=== PATIENT | male | born 1965 ===

== ENCOUNTER 2016-12-10 09:51 | Inpatient (IN) | payer MEDICARE, MEDICAID ==
[2016-12-10 10:00] VITALS: BMI 25.9
[2016-12-10] MEDS ORDERED: Sodium Chloride 0.9% 500 ML IV STA (10:37)
--- NOTE | 2016-12-10 10:40 | ED PDOC ---
HPI: General Adult Time Seen by Provider: 12/10/16 10:26 Chief Complaint (Nursing): Psychiatric Evaluation Chief Complaint (Provider): Anxiety History Per: Patient, Family History/Exam Limitations: no limitations Onset/Duration Of Symptoms: Days (5) Have you had recent travel within the past 21 days to any of the following countries: [place], [place], [place] or [place]?: No Current Symptoms Are (Timing): Still Present Additional Complaint(s): Pt. has not been sleeping and feeling anxious. Talking a lot and screaming at nights. No suicidal or homicidal ideation. Eating and drinking with no issues. No changes in his walking. No drugs or etoh. Taking his meds. Urinating well. No abd pain. No chest pain, dyspnea, headaches, dizziness, cough. Past Medical History Reviewed: Nursing Documentation, Vital Signs Vital Signs: Last Vital Signs Temp 99 F 12/10/16 09:59 Pulse 86 12/10/16 09:59 Resp BP 153/101 H 12/10/16 09:59 Pulse Ox 98 12/10/16 12:10 - Medical History PMH: Anxiety, Asthma, Bipolar Disorder, Bronchitis, COPD, HTN, Hypercholesterolemia, Chronic Kidney Disease, Schizophrenia Denies: HIV Other PMH: hyponatremia hx - Surgical History Surgical History: Denies: CABG - Family History Family History: States: Unknown Family Hx - Living Arrangements Living Arrangements: With Family - Social History Current smoker - smoking cessation education provided: No Alcohol: None Drugs: Denies - Allergies Allergies/Adverse Reactions: Allergies Allergy/AdvReac Type Severity Reaction Status Date / Time pear Allergy RASH Verified 12/10/16 10:05 Review of Systems ROS Statement: Except As Marked, All Systems Reviewed And Found Negative Psych: Positive for: Anxiety Physical Exam - Reviewed Nursing Documentation Reviewed: Yes Vital Signs Reviewed: Yes - Physical Exam Appears: Positive for: Non-toxic, No Acute Distress Head Exam: Positive for: ATRAUMATIC, NORMAL INSPECTION, NORMOCEPHALIC Skin: Positive for: Normal Color, Warm, DRY Eye Exam: Positive for: EOMI, Normal appearance, PERRL ENT: Positive for: Normal ENT Inspection Neck: Positive for: Normal, Painless ROM Cardiovascular/Chest: Positive for: Regular Rate, Rhythm Respiratory: Positive for: CNT, Normal Breath Sounds Gastrointestinal/Abdominal: Positive for: Normal Exam, Bowel Sounds, Soft. Negative for: Tenderness Back: Positive for: Normal Inspection. Negative for: L CVA Tenderness, R CVA Tenderness Extremity: Positive for: Normal ROM. Negative for: Tenderness, Pedal Edema Neurologic/Psych: Positive for: Alert, sand screener II-XII, Oriented. Negative for: Motor/Sensory Deficits, Aphasia, Facial Droop - Laboratory Results Result Diagrams: 12/10/16 11:12 12/10/16 11:12 Interpretation Of Abn Labs: cl 92, na 130 Urine dip results: Negative for: Leukocyte Esterase, Nitrate - ECG ECG: Positive for: Interpreted By Me, Viewed By Me ECG Rhythm: Positive for: Normal QRS, Normal ST Segment, Sinus Rhythm O2 Sat by Pulse Oximetry: 98 Pulse Ox Interpretation: Normal - CT Scan/US head Other Rad Studies (CT/US): Read By Radiologist Other Rad Interpretation: no acute - Progress ED Course And Treament: 1209: Stable. Na and Cl likely improved with fluids given in ER. 1325: Stable. Crisis saw pt. Will admit. Is medically stable for eval. Disposition - Clinical Impression Clinical Impression: Schizophrenia, Bipolar disorder - Patient ED Disposition Is Patient to be Admitted: Yes Counseled Patient/Family Regarding: Studies Performed, Diagnosis - Disposition Disposition Time: 13:25 Condition: FAIR - Pt Status Changed To: Hospital Disposition Of: Inpatient - Admit Certification Admit to Inpatient:: After my assessment, the patient will require hospitalization for at least two midnights. This is because of the severity of symptoms shown, intensity of services needed, and/or the medical risk in this patient being treated as an outpatient. - POA Present On Arrival: None
[2016-12-10 11:20] LABS: BASO % 0.4 % (0.0-2.0); EOS # 0.1 K/uL (0.0-0.7); EOS % 1.3 % (0.0-4.0); HEMATOCRIT 37.4 % (35.0-51.0); LYMPH # 1.4 K/uL (1.0-4.3); LYMPH % 23.4 % (20.0-40.0); MEAN CELL VOLUME 90.9 fl (80.0-94.0); MEAN CORPUSCULAR HEMOGLOBIN 29.9 pg (27.0-31.0); MEAN CORPUSCULAR HGB CONC 32.9 g/dL (33.0-37.0); MEAN PLATELET VOLUME 7.4 fl (7.2-11.7); MONO # 0.5 K/uL (0.0-0.8); MONO % 8.2 % (0.0-10.0); NEUT # 3.9 K/uL (1.8-7.0); NEUT % 66.7 % (50.0-75.0); RED CELL DISTRIBUTION WIDTH 13.6 % (11.5-14.5); WHITE BLOOD COUNT 5.9 K/uL (4.8-10.8)
[2016-12-10 11:29] LABS: ALCOHOL SERUM < 10 mg/dl (0-10); ALKALINE PHOSPHATASE 66 U/L (38-126); ALT/SGPT 18 U/L (21-72); AST/SGOT 34 U/L (17-59); BILIRUBIN,TOTAL 0.4 mg/dl (0.2-1.3); BLOOD UREA NITROGEN 24 mg/dl (9-20); CALCIUM 9.3 mg/dL (8.4-10.2); CARBON DIOXIDE 28 mmol/L (22-30); CHLORIDE 92 mmol/L (98-107); GFR AFRICAN-AMERICAN > 60; GLUCOSE,RANDOM 89 mg/dL (75-110); SODIUM 130 mmol/l (132-148)
--- NOTE | 2016-12-10 11:52 | CT ---
PROCEDURE: CT HEAD WITHOUT CONTRAST. HISTORY: headache COMPARISON: None available. TECHNIQUE: Axial computed tomography images were obtained through the head/brain without intravenous contrast. Radiation dose: Total exam DLP = 871.04 mGy-cm. This CT exam was performed using one or more of the following dose reduction techniques: Automated exposure control, adjustment of the mA and/or kV according to patient size, and/or use of iterative reconstruction technique. FINDINGS: HEMORRHAGE: No intracranial hemorrhage. BRAIN: No mass effect or edema. Mild diffuse atrophy. Mild periventricular white matter lucency consistent with chronic microvascular ischemic change. No evidence of acute infarct. VENTRICLES: Mild ventricular dilatation likely representing central greater than peripheral cerebral atrophy. CALVARIUM: Unremarkable. PARANASAL SINUSES: Sphenoid retention cyst/polyp. Otherwise unremarkable. MASTOID AIR CELLS: Unremarkable as visualized. No inflammatory changes. OTHER FINDINGS: None. IMPRESSION: No intracranial mass, hemorrhage or evidence of acute infarct. Mild atrophy, slightly greater than expected for patient age. Chronic white matter ischemic change. Left sphenoid retention cyst/ polyp.
[2016-12-10 12:06] LABS: PARTIAL THROMBOPLASTIN TIME 27.8 SECONDS (23.3-32.5)
[2016-12-10] MEDS ORDERED: DiphenhydrAMINE 50 mg/ml Inj IM PRN (18:19)
[2016-12-10] MEDS ORDERED: Magnesium Hydroxide Susp 30 ml UD PO PRN (18:26)
[2016-12-10] MEDS: Divalproex 500 mg DR(BID formulation) PO SCH (21:13)
[2016-12-11 08:39] LABS: T4 8.89 ug/dl (5.5-11.0)
[2016-12-11 08:53] LABS: THYROID STIMULATING HORMONE 3.56 mIU/ML (0.46-4.68)
[2016-12-11] MEDS ORDERED: Divalproex 500 mg DR(BID formulation) PO SCH (09:00)
[2016-12-11] MEDS ORDERED: Risperidone M tab 1 MG PO SCH (09:00)
--- NOTE | 2016-12-11 09:07 | CARD ---
APPROVED REPORT EKG Measurement Heart [id number] <Conclusion> Normal sinus rhythm Normal ECG
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
[2016-12-11] MEDS: Risperidone M tab 1 MG PO SCH (17:10)
[2016-12-11 17:16] VITALS: O2SAT 99
--- NOTE | 2016-12-11 19:48 | CP.PCM.CON ---
History of Present Illness - History of Present Illness History of Present Illness: 51 yrs old ,male AD CC anxious, agitated , paranoid , not sleeping Psych Hx Bipolar disorder , Schizophrenia. PMHx COPD Bronchial Asthma , Allergic Rhinitis , HTN , High Cholesterol , CKD , Hydronephrosis , PCK , TURP , GERD , Hyponatremia Review of Systems - Review of Systems Systems not reviewed;Unavailable: Altered Mental Status - Psychiatric Psychiatric: Anxiety, Irritability Past Patient History - Past Medical History & Family History Past Medical History?: Yes - Past Social History Smoking Status: Never Smoked Alcohol: None Drugs: Denies Home Situation {Lives}: With Family - CARDIAC Hx Hypertension: Yes (10 yrs) - PULMONARY Hx Asthma: Yes Hx Tuberculosis: No - NEUROLOGICAL HX Cerebrovascular Accident: No Hx Seizures: No - HEENT Hx HEENT Problems: No - RENAL Hx Chronic Kidney Disease: Yes - ENDOCRINE/METABOLIC Hx Endocrine Disorders: No - HEMATOLOGICAL/ONCOLOGICAL Hx Blood Disorders: No Hx Cancer: No Hx Human Immunodeficiency Virus (HIV): No - INTEGUMENTARY Hx Dermatological Problems: No - MUSCULOSKELETAL/RHEUMATOLOGICAL Hx Musculoskeletal Disorders: Yes Hx Falls: Yes - GASTROINTESTINAL Hx Gastrointestinal Disorders: Yes Hx Gastroesophageal Reflux: Yes - GENITOURINARY/GYNECOLOGICAL Hx Genitourinary Disorders: Yes Hx Sexually Transmitted Disorders: No Other/Comment: prostate surgery 5 yrs ago - PSYCHIATRIC Hx Anxiety: Yes Hx Bipolar Disorder: Yes Hx Psychosis: Yes Hx Schizophrenia: Yes Hx Substance Use: No - SURGICAL HISTORY Hx Surgeries: Yes Hx Coronary Artery Bypass Graft: No Other/Comment: prostate surgery 5 yrs ago - ANESTHESIA Hx Anesthesia: Yes Hx Anesthesia Reactions: No Meds Allergies/Adverse Reactions: Allergies Allergy/AdvReac Type Severity Reaction Status Date / Time pear Allergy RASH Verified 12/10/16 10:05 - Medications Medications: Current Medications Acetaminophen (Tylenol 325mg Tab) 650 mg PO Q4 PRN PRN Reason: pain 3 thru 8 Al Hydrox/Mg Hydrox/Simethicone (Maalox Plus 30 Ml) 30 ml PO Q6 PRN PRN Reason: Indigestion / Heartburn Benztropine Mesylate (Cogentin) 1 mg PO HS YEN Last Admin: 12/10/16 21:13 Dose: 1 mg Clonazepam (Klonopin) 1 mg PO BID YEN Last Admin: 12/11/16 17:11 Dose: 1 mg Diphenhydramine HCl (Benadryl) 50 mg PO Q6 PRN PRN Reason: eps Last Admin: 12/11/16 05:46 Dose: 50 mg Diphenhydramine HCl (Benadryl) 50 mg IM Q6 PRN PRN Reason: severe eps if can not swallow Divalproex Sodium (Depakote Dr(*Bid*)) 1,000 mg PO HS [facility] Last Admin: 12/10/16 21:13 Dose: 1,000 mg Fluticasone Propionate (Flonase) 2 spr ARNOLDO DAILY [facility] Haloperidol (Haldol) 5 mg PO Q4 PRN PRN Reason: Agitation Last Admin: 12/11/16 05:46 Dose: 5 mg Haloperidol Lactate (Haldol) 5 mg IM Q4 PRN PRN Reason: severe agitation Hydrochlorothiazide (Microzide) 12.5 mg PO DAILY [facility] Lorazepam (Ativan) 2 mg PO Q4 PRN PRN Reason: Agitation Last Admin: 12/10/16 20:41 Dose: 2 mg Lorazepam (Ativan) 2 mg IM Q6 PRN PRN Reason: severe agitation Magnesium Hydroxide (Milk Of Magnesia) 30 ml PO HS PRN PRN Reason: Constipation Pantoprazole Sodium (Protonix Ec Tab) 40 mg PO DAILY [facility] Risperidone (Risperdal M-Tab) 3 mg PO BID [facility] Last Admin: 12/11/16 17:10 Dose: 3 mg Valsartan (Diovan) 160 mg PO DAILY [facility] Physical Exam - Constitutional Appears: Agitated - Head Exam Head Exam: NORMAL INSPECTION - Eye Exam Pupil Exam: PERRL - ENT Exam ENT Exam: Normal Oropharynx - Neck Exam Neck exam: Positive for: Normal Inspection - Respiratory Exam Respiratory Exam: Decreased Breath Sounds (at bases) - Cardiovascular Exam Cardiovascular Exam: REGULAR RHYTHM - GI/Abdominal Exam GI & Abdominal Exam: Normal Bowel Sounds, Soft - Extremities Exam Extremities exam: Positive for: normal inspection - Back Exam Back exam: NORMAL INSPECTION - Neurological Exam Neurological exam: Altered Additional comments: no focal motor/sensory deficit - Psychiatric Exam Psychiatric exam: Agitated, Anxious - Skin Skin Exam: Warm Results - Vital Signs Recent Vital Signs: Last Vital Signs Temp 98.2 F 12/11/16 17:00 Pulse 99 H 12/11/16 17:00 Resp 18 12/11/16 17:00 BP 134/84 12/11/16 17:00 Pulse Ox 99 12/11/16 17:00 - Labs Result Diagrams: 12/17/16 05:30 12/18/16 08:00 Labs: Laboratory Results - last 24 hr 12/11/16 06:30 Thyroxine (T4) 8.89 Total T3 1.18 L TSH 3rd Generation 3.56 RPR Nonreactive Assessment & Plan - Assessment and Plan (Free Text) Assessment: COPD Bronchial Asthma , HTN , High Cholesterol , GERD, CKD , Hydronephrosis , Hyponatremia. Plan: Continue Diovan , Maalox , Protonix, f/u Na - Date & Time Date: 12/11/16 Time: 13:30
[2016-12-11] MEDS: Divalproex 500 mg DR(BID formulation) PO SCH (21:11)
[2016-12-12] MEDS: Pantoprazole 40 mg EC Tab PO SCH (08:16)
[2016-12-12] MEDS: Risperidone M tab 1 MG PO SCH ×3 (08:17→17:47)
--- NOTE | 2016-12-12 13:45 | PCM.PYCHPN ---
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 he is yelling in hallway and with rambling speech in treatment team. he is taking medications as prescribed. he has given consent for serqoeu. pt observed to have tremors. Medication Change: Yes (add seroquel) Medical Record Reviewed: Yes Mental Status Examination - Cognitive Function Orientation: Person, Place, Situation, Time Memory: Intact Attention: WNL Concentration: WNL Association: [facility] Fund of Knowledge: [facility] Decription of patient's judgement and insights: variable - Mood Mood: Other (anxious/depressed/dysphoric) - Affect Affect: Other (labile) - Speech Speech: Loud - Formal Thought Process Formal Thought Process: Delusions, Paranoia, Loosening of associations - Suicidal Ideation Suicidal Ideation: No - Homicidal Ideation Homicidal Ideation: No Goal/Treatment Plan - Goal/Treatment Plan Need for Continued Stay: Remain at risks for inpatient hospitalization, Discharge may exacerbated symptoms Progress Toward Problem(s) and Goals/Treatment Plan: schizoaffective disorder bipolar type continue current treatment will add seroquel to address mood/psychosis. t/c increase in depakote disposition planning Estimated Date of D/C: 12/19/16
[2016-12-12] MEDS: Divalproex 500 mg DR(BID formulation) PO SCH (21:32)
[2016-12-13] MEDS: Pantoprazole 40 mg EC Tab PO SCH (09:12)
[2016-12-13] MEDS: Risperidone M tab 1 MG PO SCH ×2 (09:12→17:01)
--- NOTE | 2016-12-13 10:54 | PCM.PYCHPN ---
Psychiatric Progress Note - Psychiatric Progress Note Patient seen today, length of contact: discussed with team Patient Chief Complaint: how do you see me? Problems Identified/Issues Discussed: pt loud, intrusive, episodes of yelling in day area. laughing to self, talking rapidly. demanding to talk to his mother. he is willing to allow an increase in his medication. he is asking about discharge. he denies medication side effects. Medication Change: Yes (increase seroquel) Medical Record Reviewed: Yes Mental Status Examination - Cognitive Function Orientation: Person, Place, Situation, Time Memory: Intact Attention: WNL Concentration: WNL Association: [facility] Fund of Knowledge: [facility] Decription of patient's judgement and insights: variable - Mood Mood: Other (labile) - Affect Affect: Other (labile) - Speech Speech: Loud - Formal Thought Process Formal Thought Process: Delusions, Paranoia, Loosening of associations Psychotic Thoughts and Behaviors: pt is internally preoccupied, loud, intrusive, labile. - Suicidal Ideation Suicidal Ideation: No - Homicidal Ideation Homicidal Ideation: No Goal/Treatment Plan - Goal/Treatment Plan Need for Continued Stay: Remain at risks for inpatient hospitalization, Discharge may exacerbated symptoms Progress Toward Problem(s) and Goals/Treatment Plan: schizoaffective disorder bipolar type continue current treatment will increased seroquel to address mood/psychosis. t/c increase in depakote- will check level tomorrow disposition planning Estimated Date of D/C: 12/19/16 - Smoking Cessation Smoking Cessation Initiated: No
[2016-12-13] MEDS: Divalproex 500 mg DR(BID formulation) PO SCH (21:04)
[2016-12-14] MEDS: Pantoprazole 40 mg EC Tab PO SCH (08:36)
[2016-12-14] MEDS: Risperidone M tab 1 MG PO SCH ×2 (08:36→16:51)
--- NOTE | 2016-12-14 10:51 | PCM.PYCHPN ---
Psychiatric Progress Note - Psychiatric Progress Note Patient seen today, length of contact: Patient evaluated, chart reviewed, case discussed with team Patient Chief Complaint: "I need a aix system administrator." Problems Identified/Issues Discussed: Patient continue to be disorganized and psychotic. He is requesting a aix system administrator to confess his sins. He denies AH/VH/SI/HI/paranoia, but seems to be internally preoccupied and is non-linear on conversation. 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 Medication Change: Yes (Increase Seroquel to 50 mg PO BID/ 100 mg PO HS) Medical Record Reviewed: Yes Mental Status Examination - Cognitive Function Orientation: Person, Place, Situation, Time Memory: Intact Attention: WNL Concentration: WNL Association: [facility]NL Fund of Knowledge: [facility] Decription of patient's judgement and insights: Poor insight/judgment - Mood Mood: Anxious - Affect Affect: Other (Labile) - Speech Speech: Loud - Formal Thought Process Formal Thought Process: Delusions, Paranoia, Loosening of associations Psychotic Thoughts and Behaviors: Denies delusions, but patient seems to be paranoid, with fluctuating delusions and internally preoccupied - Suicidal Ideation Suicidal Ideation: No - Homicidal Ideation Homicidal Ideation: No Goal/Treatment Plan - Goal/Treatment Plan Need for Continued Stay: Remain at risks for inpatient hospitalization, Discharge may exacerbated symptoms Progress Toward Problem(s) and Goals/Treatment Plan: 51 yo male with Schizoaffective disorder continues to be labile and acutely psychotic. -Increase Seroquel to 50 mg PO BID/ 100 mg PO HS -Continue other medications -Individual, group and milieu tx Estimated Date of D/C: 12/19/16
--- NOTE | 2016-12-14 14:14 | CP.PCM.PN ---
Subjective - Date & Time of Evaluation Date of Evaluation: 12/14/16 Time of Evaluation: 11:00 - Subjective Subjective: F/U COPD bronchial Asthma/HTN. Occasional SOB , no SOB now , no CASTAÑEDA , no cough Objective - Vital Signs/Intake and Output Vital Signs (last 24 hours): Temp Pulse Resp BP Pulse Ox 96.4 F L 78 18 129/94 H 99 12/14/16 09:12 12/14/16 09:12 12/14/16 09:12 12/14/16 09:12 12/11/16 17:00 - Medications Medications: Current Medications Acetaminophen (Tylenol 325mg Tab) 650 mg PO Q4 PRN PRN Reason: pain 3 thru 8 Al Hydrox/Mg Hydrox/Simethicone (Maalox Plus 30 Ml) 30 ml PO Q6 PRN PRN Reason: Indigestion / Heartburn Benztropine Mesylate (Cogentin) 1 mg PO [facility] Last Admin: 12/13/16 21:05 Dose: 1 mg Benztropine Mesylate (Cogentin) 1 mg PO DAILY [facility] Last Admin: 12/14/16 08:38 Dose: 1 mg Clonazepam (Klonopin) 1 mg PO BID [facility] Last Admin: 12/14/16 08:42 Dose: 1 mg Diphenhydramine HCl (Benadryl) 50 mg PO Q6 PRN PRN Reason: eps Last Admin: 12/12/16 03:23 Dose: 50 mg Diphenhydramine HCl (Benadryl) 50 mg IM Q6 PRN PRN Reason: severe eps if can not swallow Divalproex Sodium (Depakote Dr(*Bid*)) 1,000 mg PO [facility] Last Admin: 12/13/16 21:04 Dose: 1,000 mg Fluticasone Propionate (Flonase) 2 spr ARNOLDO DAILY [facility] Last Admin: 12/14/16 08:39 Dose: 2 spr Haloperidol (Haldol) 5 mg PO Q4 PRN PRN Reason: Agitation Last Admin: 12/12/16 03:23 Dose: 5 mg Haloperidol Lactate (Haldol) 5 mg IM Q4 PRN PRN Reason: severe agitation Hydrochlorothiazide (Microzide) 12.5 mg PO DAILY [facility] Last Admin: 12/14/16 08:38 Dose: 12.5 mg Lorazepam (Ativan) 2 mg PO Q4 PRN PRN Reason: Agitation Last Admin: 12/14/16 13:31 Dose: 2 mg Lorazepam (Ativan) 2 mg IM Q6 PRN PRN Reason: severe agitation Magnesium Hydroxide (Milk Of Magnesia) 30 ml PO HS PRN PRN Reason: Constipation Pantoprazole Sodium (Protonix Ec Tab) 40 mg PO DAILY [facility] Last Admin: 12/14/16 08:36 Dose: 40 mg Quetiapine Fumarate (Seroquel) 50 mg PO BID [facility] Quetiapine Fumarate (Seroquel) 100 mg PO HS [facility] Risperidone (Risperdal M-Tab) 3 mg PO BID [facility] Last Admin: 12/14/16 08:36 Dose: 3 mg Fluticasone/Salmeterol (Advair Diskus 250/50) 1 puff INH Q12 [facility] Valsartan (Diovan) 80 mg PO DAILY [facility] Last Admin: 12/14/16 08:40 Dose: 80 mg - Labs Labs: PT 10.7 SECONDS (9.6-11.2) 12/10/16 11:12 INR 1.03 (0.92-1.08) 12/10/16 11:12 APTT 27.8 SECONDS (23.3-32.5) 12/10/16 11:12 - Constitutional Appears: No Acute Distress - Head Exam Head Exam: NORMAL INSPECTION - Eye Exam Eye Exam: PERRL - ENT Exam ENT Exam: Normal Oropharynx - Neck Exam Neck Exam: Normal Inspection - Respiratory Exam Respiratory Exam: Decreased Breath Sounds (at bases) - Cardiovascular Exam Cardiovascular Exam: REGULAR RHYTHM - GI/Abdominal Exam GI & Abdominal Exam: Soft, Normal Bowel Sounds - Extremities Exam Extremities Exam: Normal Inspection - Back Exam Back Exam: NORMAL INSPECTION - Neurological Exam Neurological Exam: Awake Additional comments: No focal motor sensory dficit. - Psychiatric Exam Psychiatric exam: Anxious - Skin Skin Exam: Warm Assessment and Plan - Assessment and Plan (Free Text) Assessment: COPD Bronchial Asthma Allergic Rhinitis HTN High Cholesterol GERD CKD Hydronephrosis Plan: Add Symbicort , continue Flonase , Diovan, HCTZ , Protonix.
[2016-12-14] MEDS: Fluticasone-Salmeterol 250-50mcg Diskus INH SCH (16:52)
[2016-12-14] MEDS: Divalproex 500 mg DR(BID formulation) PO SCH (21:27)
[2016-12-15] MEDS: Fluticasone-Salmeterol 250-50mcg Diskus INH SCH ×3 (06:12→22:13)
[2016-12-15] MEDS: Pantoprazole 40 mg EC Tab PO SCH (08:55)
[2016-12-15] MEDS: Risperidone M tab 1 MG PO SCH ×2 (08:58→16:56)
--- NOTE | 2016-12-15 17:27 | PCM.PYCHPN ---
Psychiatric Progress Note - Psychiatric Progress Note Patient seen today, length of contact: Patient evaluated, chart reviewed, case discussed with team Patient Chief Complaint: was home feeling nervous not understanding what is going on, family called ambulance. denies concern for safety or mistreatment. staff report pt has been somewhat calmer, has been adherent with treatment plan. requires redirection Problems Identified/Issues Discussed: changes in thought process, changes in cognition and behavior Medical Problems: per chart Diagnostic Results: per psychiatry per medicine per nursing per social work per recreation therapy Medication Change: No Medical Record Reviewed: Yes Mental Status Examination - Cognitive Function Orientation: Person, Place, Situation, Time Memory: Intact Attention: WNL Concentration: WNL Association: Loose Fund of Knowledge: WNL Decription of patient's judgement and insights: impaired - Mood Mood: Anxious - Affect Affect: Other (Labile) - Speech Speech: Loud - Formal Thought Process Formal Thought Process: Delusions, Paranoia, Loosening of associations - Suicidal Ideation Suicidal Ideation: No - Homicidal Ideation Homicidal Ideation: No Goal/Treatment Plan - Goal/Treatment Plan Need for Continued Stay: Remain at risks for inpatient hospitalization, Discharge may exacerbated symptoms Progress Toward Problem(s) and Goals/Treatment Plan: inpt milieu adjust meds per clinical status discharge planning in progress Estimated Date of D/C: 12/19/16 - Smoking Cessation Smoking Cessation Initiated: No Reason for not providing: deferred
[2016-12-15] MEDS: Divalproex 500 mg DR(BID formulation) PO SCH (22:12)
[2016-12-16] MEDS: Risperidone M tab 1 MG PO SCH ×2 (09:26→16:38)
[2016-12-16] MEDS: Pantoprazole 40 mg EC Tab PO SCH (09:28)
[2016-12-16] MEDS: Fluticasone-Salmeterol 250-50mcg Diskus INH SCH ×2 (09:32→21:21)
[2016-12-16 10:05] LABS: ALKALINE PHOSPHATASE 69 U/L (38-126); ALT/SGPT 27 U/L (21-72); AST/SGOT 29 U/L (17-59); BILIRUBIN,TOTAL 0.5 mg/dl (0.2-1.3); BLOOD UREA NITROGEN 37 mg/dl (9-20); CARBON DIOXIDE 28 mmol/L (22-30); CHLORIDE 87 mmol/L (98-107); GFR AFRICAN-AMERICAN > 60; GLUCOSE,RANDOM 96 mg/dL (75-110); POTASSIUM 4.4 MMOL/L (3.6-5.0); SODIUM 127 mmol/l (132-148); TOTAL PROTEIN 6.8 G/DL (6.3-8.2)
--- NOTE | 2016-12-16 14:34 | CP.PCM.PN ---
Subjective - Date & Time of Evaluation Date of Evaluation: 12/16/16 Objective - Vital Signs/Intake and Output Vital Signs (last 24 hours): Temp Pulse Resp BP Pulse Ox 97.3 F L 84 16 123/78 99 12/16/16 09:00 12/16/16 09:00 12/16/16 09:00 12/16/16 09:00 12/11/16 17:00 - Medications Medications: Current Medications Acetaminophen (Tylenol 325mg Tab) 650 mg PO Q4 PRN PRN Reason: pain 3 thru 8 Al Hydrox/Mg Hydrox/Simethicone (Maalox Plus 30 Ml) 30 ml PO Q6 PRN PRN Reason: Indigestion / Heartburn Benztropine Mesylate (Cogentin) 1 mg [address] [facility] Last Admin: 12/15/16 22:13 Dose: 1 mg Benztropine Mesylate (Cogentin) 1 mg PO DAILY [facility] Last Admin: 12/16/16 09:29 Dose: 1 mg Clonazepam (Klonopin) 1 mg PO BID [facility] Last Admin: 12/16/16 09:26 Dose: 1 mg Diphenhydramine HCl (Benadryl) 50 mg PO Q6 PRN PRN Reason: eps Last Admin: 12/16/16 01:41 Dose: 50 mg Diphenhydramine HCl (Benadryl) 50 mg IM Q6 PRN PRN Reason: severe eps if can not swallow Divalproex Sodium (Depakote Dr(*Bid*)) 1,000 mg PO [facility] Last Admin: 12/15/16 22:12 Dose: 1,000 mg Fluticasone Propionate (Flonase) 2 spr ARNOLDO DAILY [facility] Last Admin: 12/16/16 09:26 Dose: 2 spr Haloperidol (Haldol) 5 mg PO Q4 PRN PRN Reason: Agitation Last Admin: 12/16/16 01:41 Dose: 5 mg Haloperidol Lactate (Haldol) 5 mg IM Q4 PRN PRN Reason: severe agitation Hydrochlorothiazide (Microzide) 12.5 mg PO DAILY [facility] Last Admin: 12/16/16 09:31 Dose: 12.5 mg Lorazepam (Ativan) 2 mg PO Q4 PRN PRN Reason: Agitation Last Admin: 12/14/16 13:31 Dose: 2 mg Lorazepam (Ativan) 2 mg IM Q6 PRN PRN Reason: severe agitation Magnesium Hydroxide (Milk Of Magnesia) 30 ml PO HS PRN PRN Reason: Constipation Pantoprazole Sodium (Protonix Ec Tab) 40 mg PO DAILY [facility] Last Admin: 12/16/16 09:28 Dose: 40 mg Quetiapine Fumarate (Seroquel) 50 mg PO BID [facility] Last Admin: 12/16/16 09:32 Dose: 50 mg Quetiapine Fumarate (Seroquel) 100 mg PO HS [facility] Last Admin: 12/15/16 22:12 Dose: 100 mg Risperidone (Risperdal M-Tab) 3 mg PO BID [facility] Last Admin: 12/16/16 09:26 Dose: 3 mg Fluticasone/Salmeterol (Advair Diskus 250/50) 1 puff INH Q12 [facility] Last Admin: 12/16/16 09:32 Dose: 1 puff Valsartan (Diovan) 80 mg PO DAILY [facility] Last Admin: 12/16/16 09:28 Dose: 80 mg - Labs Labs: 12/16/16 09:35 PT 10.7 SECONDS (9.6-11.2) 12/10/16 11:12 INR 1.03 (0.92-1.08) 12/10/16 11:12 APTT 27.8 SECONDS (23.3-32.5) 12/10/16 11:12
[2016-12-16] MEDS: Alum-Mag Hydrox-Simethicone Susp (30 mL) PO PRN (16:45)
--- NOTE | 2016-12-16 18:51 | PCM.PYCHPN ---
Psychiatric Progress Note - Psychiatric Progress Note Patient seen today, length of contact: Patient evaluated, chart reviewed, case discussed with team Patient Chief Complaint: was home feeling nervous not understanding what is going on, family called ambulance. denies concern for safety or mistreatment. staff report pt has been somewhat calmer, has been adherent with treatment plan. requires redirection. pt is seen visiting with family during visiting hours. staff report pt carries water bottle with him. denies twitching, shaking, etc. [id number] sodium 130 [id number] sodium 127. Problems Identified/Issues Discussed: changes in thought process, changes in cognition and behavior Medical Problems: per chart Diagnostic Results: per psychiatry per medicine per nursing per social work per recreation therapy DSM 5 Symptoms Update: alteration in cognition, alteration thought process, alteration in sodium control Medication Change: No Medical Record Reviewed: Yes Consults ordered or reviewed: case was discussed with hospitalist by team pt sodium today [id number] 127, [id number] sodium 130 Mental Status Examination - Cognitive Function Orientation: Person, Place, Situation, Time Memory: Intact Attention: WNL Concentration: WNL Association: Loose Fund of Knowledge: WNL Decription of patient's judgement and insights: impaired - Mood Mood: Anxious - Affect Affect: Other (Labile) - Speech Speech: Loud - Formal Thought Process Formal Thought Process: Delusions, Paranoia, Loosening of associations - Suicidal Ideation Suicidal Ideation: No - Homicidal Ideation Homicidal Ideation: No Goal/Treatment Plan - Goal/Treatment Plan Need for Continued Stay: Remain at risks for inpatient hospitalization, Discharge may exacerbated symptoms Progress Toward Problem(s) and Goals/Treatment Plan: inpt milieu adjust meds per clinical status sodium level discussed with hospitalist by team-hospitalist will order hep lock and relevant sodium replacement team discussed case with attending md from [facility]-pt to be transferred to [facility] for iv fluids discharge planning in progress Estimated Date of D/C: 12/19/16 - Smoking Cessation Smoking Cessation Initiated: No Reason for not providing: deferred
[2016-12-16] MEDS ORDERED: Sodium Chloride 0.9% 1,000 ML IV SCH (20:30)
[2016-12-16] MEDS: Sodium Chloride 0.9% 1,000 ML IV SCH (21:20)
[2016-12-16] MEDS: Divalproex 500 mg DR(BID formulation) PO SCH (21:21)
[2016-12-17 07:34] LABS: HEMATOCRIT 36.9 % (35.0-51.0); MEAN CELL VOLUME 91.2 fl (80.0-94.0); MEAN CORPUSCULAR HGB CONC 32.8 g/dL (33.0-37.0); WHITE BLOOD COUNT 5.2 K/uL (4.8-10.8)
[2016-12-17 08:17] LABS: ALB/GLOB RATIO 1.1 (1.0-2.1); ALKALINE PHOSPHATASE 80 U/L (38-126); ALT/SGPT 30 U/L (21-72); AST/SGOT 33 U/L (17-59); BILIRUBIN,TOTAL 0.4 mg/dl (0.2-1.3); BLOOD UREA NITROGEN 38 mg/dl (9-20); CALCIUM 9.3 mg/dL (8.4-10.2); CARBON DIOXIDE 30 mmol/L (22-30); CHLORIDE 90 mmol/L (98-107); GFR AFRICAN-AMERICAN > 60; GLUCOSE,RANDOM 93 mg/dL (75-110); POTASSIUM 4.5 MMOL/L (3.6-5.0); SODIUM 131 mmol/l (132-148)
[2016-12-17] MEDS: Fluticasone-Salmeterol 250-50mcg Diskus INH SCH ×2 (09:18→21:09)
[2016-12-17] MEDS: Risperidone M tab 1 MG PO SCH ×2 (09:27→17:35)
[2016-12-17] MEDS: Pantoprazole 40 mg EC Tab PO SCH (09:27)
[2016-12-17] MEDS: Sodium Chloride 0.9% 1,000 ML IV SCH (09:29)
--- NOTE | 2016-12-17 14:34 | CP.PCM.PN ---
Subjective - Date & Time of Evaluation Date of Evaluation: 12/17/16 Time of Evaluation: 12:30 - Subjective Subjective: COPD Bronchial Asthma. Pt with no c/o no A/D, increased hyponatremia yesterday, refusing IV. Objective - Vital Signs/Intake and Output Vital Signs (last 24 hours): Temp Pulse Resp BP Pulse Ox 97.5 F L 81 20 132/87 99 12/17/16 09:00 12/17/16 09:00 12/17/16 09:00 12/17/16 09:00 12/11/16 17:00 - Medications Medications: Current Medications Acetaminophen (Tylenol 325mg Tab) 650 mg PO Q4 PRN PRN Reason: pain 3 thru 8 Last Admin: 12/17/16 12:52 Dose: 650 mg Al Hydrox/Mg Hydrox/Simethicone (Maalox Plus 30 Ml) 30 ml PO Q6 PRN PRN Reason: Indigestion / Heartburn Last Admin: 12/16/16 16:45 Dose: 30 ml Benztropine Mesylate (Cogentin) 1 mg PO [facility] Last Admin: 12/16/16 21:21 Dose: 1 mg Benztropine Mesylate (Cogentin) 1 mg PO DAILY [facility] Last Admin: 12/17/16 09:17 Dose: 1 mg Clonazepam (Klonopin) 1 mg PO BID [facility] Last Admin: 12/17/16 09:23 Dose: 1 mg Diphenhydramine HCl (Benadryl) 50 mg PO Q6 PRN PRN Reason: eps Last Admin: 12/17/16 03:26 Dose: 50 mg Diphenhydramine HCl (Benadryl) 50 mg IM Q6 PRN PRN Reason: severe eps if can not swallow Divalproex Sodium (Depakote Dr(*Bid*)) 1,000 mg PO HS [facility] Last Admin: 12/16/16 21:21 Dose: 1,000 mg Fluticasone Propionate (Flonase) 2 spr ARNOLDO DAILY [facility] Last Admin: 12/17/16 09:26 Dose: 2 spr Haloperidol (Haldol) 5 mg PO Q4 PRN PRN Reason: Agitation Last Admin: 12/17/16 03:26 Dose: 5 mg Haloperidol Lactate (Haldol) 5 mg IM Q4 PRN PRN Reason: severe agitation Hydrochlorothiazide (Microzide) 12.5 mg PO DAILY [facility] Last Admin: 12/17/16 09:19 Dose: 12.5 mg Sodium Chloride (Sodium Chloride 0.9%) 1,000 mls @ 90 mls/hr IV .[id number] [facility] Stop: 12/17/16 20:46 Last Admin: 12/17/16 09:29 Dose: 90 mls/hr Lorazepam (Ativan) 2 mg PO Q4 PRN PRN Reason: Agitation Last Admin: 12/14/16 13:31 Dose: 2 mg Lorazepam (Ativan) 2 mg IM Q6 PRN PRN Reason: severe agitation Magnesium Hydroxide (Milk Of Magnesia) 30 ml PO HS PRN PRN Reason: Constipation Last Admin: 12/17/16 05:51 Dose: 30 ml Pantoprazole Sodium (Protonix Ec Tab) 40 mg PO DAILY [facility] Last Admin: 12/17/16 09:27 Dose: 40 mg Quetiapine Fumarate (Seroquel) 50 mg PO BID [facility] Last Admin: 12/17/16 09:29 Dose: 50 mg Quetiapine Fumarate (Seroquel) 150 mg PO HS [facility] Last Admin: 12/16/16 21:23 Dose: 150 mg Risperidone (Risperdal M-Tab) 3 mg PO BID [facility] Last Admin: 12/17/16 09:27 Dose: 3 mg Fluticasone/Salmeterol (Advair Diskus 250/50) 1 puff INH Q12 [facility] Last Admin: 12/17/16 09:18 Dose: 1 puff Valsartan (Diovan) 80 mg PO DAILY [facility] Last Admin: 12/17/16 09:16 Dose: 80 mg - Labs Labs: 12/17/16 05:30 12/17/16 05:30 PT 10.7 SECONDS (9.6-11.2) 12/10/16 11:12 INR 1.03 (0.92-1.08) 12/10/16 11:12 APTT 27.8 SECONDS (23.3-32.5) 12/10/16 11:12 - Constitutional Appears: No Acute Distress - Head Exam Head Exam: NORMAL INSPECTION - Eye Exam Eye Exam: PERRL - ENT Exam ENT Exam: Normal Exam - Neck Exam Neck Exam: Normal Inspection - Respiratory Exam Respiratory Exam: Decreased Breath Sounds (at bases) - Cardiovascular Exam Cardiovascular Exam: REGULAR RHYTHM - GI/Abdominal Exam GI & Abdominal Exam: Soft, Normal Bowel Sounds - Extremities Exam Extremities Exam: Normal Inspection - Back Exam Back Exam: NORMAL INSPECTION - Neurological Exam Neurological Exam: Awake Additional comments: No focal motor/sensory deficit. - Psychiatric Exam Psychiatric exam: Anxious - Skin Skin Exam: Warm Assessment and Plan - Assessment and Plan (Free Text) Assessment: COPD bronchial Asthma HTN High Cholesterol GERD Hyponatremia CKD Hydronephrosis Plan: ,Patient reported previously to be compulsive water drinker , also Hx of PCK , Hydronephrosi , TURP , Sodium 131, DC IV NS,Sodium 1g tab po bid, f/u blood work in AM, f/u Renal U-S.
--- NOTE | 2016-12-17 15:21 | US ---
HISTORY: PCK , Hydronephrosis , Hyponatremia COMPARISON: 11/02/2014. Renal ultrasound. 02/11/2015 CT abdomen and pelvis. TECHNIQUE: Sonographic evaluation of the retroperitoneum. FINDINGS: RIGHT KIDNEY:: Measures 10.3 x 20.7cm. Severe for hydronephrosis.. LEFT KIDNEY:: Measures 10.7 x 21.1cm. Severe hydronephrosis.. AORTA:: No aneurysmal dilatation. IVC:: Unremarkable. BLADDER:: Urinary bladder assessment: Prevoid volume: 1073 ml Intrinsic, mural, perivesical abnormalities: None Ureteral jets: Not documented. OTHER FINDINGS: None . IMPRESSION: Chronic severe bilaterally symmetrical hydronephrosis. Large capacitance bladder without focal or diffuse bladder wall abnormalities.
--- NOTE | 2016-12-17 15:34 | PCM.PYCHPN ---
Psychiatric Progress Note - Psychiatric Progress Note Patient seen today, length of contact: Patient evaluated, chart reviewed, case discussed with team Patient Chief Complaint: "I'm okay" Problems Identified/Issues Discussed: Patient continues to be inappropriate at times, loud, intrusive and disorganized. He denies AH/VH/SI/HI/paranoia, but seems to be internally preoccupied and is non-linear on conversation. [employer] discussed r/b/se of increasing Seroquel with the patient given his continued psychosis. Patient was hyponatremia yesterday, transferred to [facility] and started on IV saline. He is being followed by Dr. Awad. Medication Change: Yes (Increase Seroquel to 100 mg PO Daily/200 mg PO HS) Medical Record Reviewed: Yes Mental Status Examination - Cognitive Function Orientation: Person, Place, Situation, Time Memory: Intact Attention: WNL Concentration: WNL Association: Loose Fund of Knowledge: WNL Decription of patient's judgement and insights: Poor I/J - Mood Mood: Anxious - Affect Affect: Other (Labile) - Speech Speech: Loud - Formal Thought Process Formal Thought Process: Delusions, Paranoia, Loosening of associations Psychotic Thoughts and Behaviors: Denies AH/VH, but he seems internally preoccupied - Suicidal Ideation Suicidal Ideation: No - Homicidal Ideation Homicidal Ideation: No Goal/Treatment Plan - Goal/Treatment Plan Need for Continued Stay: Remain at risks for inpatient hospitalization, Discharge may exacerbated symptoms Progress Toward Problem(s) and Goals/Treatment Plan: 51 yo male with Schizoaffective disorder continues to be labile and acutely psychotic. -Increase Seroquel to 100 mg Daily/ 200 mg PO HS -Patient was hyponatremia, now improving with IV saline, being followed by medicine consult -Continue other medications -Individual, group and milieu tx Estimated Date of D/C: 12/21/16
[2016-12-17] MEDS: Divalproex 500 mg DR(BID formulation) PO SCH (21:10)
[2016-12-17 21:21] LABS: RBC URINE 1 /hpf (0-3); URINE BILIRUBIN NEGATIVE (NEGATIVE); URINE BLOOD NEGATIVE (NEGATIVE); URINE COLOR STRAW (YELLOW); URINE GLUCOSE (UA) NEG (Normal); URINE KETONE NEGATIVE (NEGATIVE); URINE LEUKOCYTE ESTERASE NEG Leu/uL (Negative); URINE PROTEIN 30 mg/dL (NEGATIVE); URINE UROBILINOGEN 0.2-1.0 mg/dL (0.2-1.0); WBC URINE < 1 /hpf (0-5)
[2016-12-18] MEDS: Fluticasone-Salmeterol 250-50mcg Diskus INH SCH ×2 (08:46→21:08)
[2016-12-18] MEDS: Risperidone M tab 1 MG PO SCH ×2 (08:47→17:29)
[2016-12-18] MEDS: Pantoprazole 40 mg EC Tab PO SCH (08:47)
[2016-12-18 09:24] LABS: ALB/GLOB RATIO 1.1 (1.0-2.1); ALKALINE PHOSPHATASE 65 U/L (38-126); ALT/SGPT 23 U/L (21-72); AST/SGOT 31 U/L (17-59); BILIRUBIN,TOTAL 0.5 mg/dl (0.2-1.3); BLOOD UREA NITROGEN 39 mg/dl (9-20); CALCIUM 9.5 mg/dL (8.4-10.2); CARBON DIOXIDE 28 mmol/L (22-30); CHLORIDE 97 mmol/L (98-107); GFR AFRICAN-AMERICAN > 60; GLUCOSE,RANDOM 86 mg/dL (75-110); POTASSIUM 4.7 MMOL/L (3.6-5.0); SODIUM 136 mmol/l (132-148); TOTAL PROTEIN 6.7 G/DL (6.3-8.2)
--- NOTE | 2016-12-18 11:44 | PCM.PYCHPN ---
Psychiatric Progress Note - Psychiatric Progress Note Patient seen today, length of contact: Patient evaluated, chart reviewed, case discussed with team Patient Chief Complaint: "I'm okay" Problems Identified/Issues Discussed: Patient continues to be disorganized. He was banging on the mccoy for some unknown reason during the previous evening and was not able to explain why today. He continues to be inappropriate at times, loud, intrusive and disorganized. He denies AH/VH/SI/HI/paranoia, but seems to be internally preoccupied and is non-linear on conversation. Medication Change: No Medical Record Reviewed: Yes Mental Status Examination - Cognitive Function Orientation: Person, Place, Situation, Time Memory: Intact Attention: WNL Concentration: WNL Association: Loose Fund of Knowledge: WNL Decription of patient's judgement and insights: Poor I/J - Mood Mood: Anxious - Affect Affect: Other (Labile) - Speech Speech: Loud - Formal Thought Process Formal Thought Process: Paranoia, Loosening of associations Psychotic Thoughts and Behaviors: Denies AH/VH, but seems internally preoccupied at times - Suicidal Ideation Suicidal Ideation: No - Homicidal Ideation Homicidal Ideation: No Goal/Treatment Plan - Goal/Treatment Plan Need for Continued Stay: Remain at risks for inpatient hospitalization, Discharge may exacerbated symptoms Progress Toward Problem(s) and Goals/Treatment Plan: 51 yo male with Schizoaffective disorder continues to be labile and acutely psychotic. -Continue Seroquel 100 mg Daily/ 200 mg PO HS -Medicine consult in progress -Continue other medications -Individual, group and milieu tx Estimated Date of D/C: 12/22/16
[2016-12-18] MEDS: Alum-Mag Hydrox-Simethicone Susp (30 mL) PO PRN (12:14)
--- NOTE | 2016-12-18 14:26 | CP.PCM.PN ---
Subjective - Date & Time of Evaluation Date of Evaluation: 12/18/16 Time of Evaluation: 11:30 - Subjective Subjective: COPD Bronchial Asthma. Anxious, calm , smiling Objective - Vital Signs/Intake and Output Vital Signs (last 24 hours): Temp Pulse Resp BP Pulse Ox 97.1 F L 78 19 135/68 99 12/18/16 06:12 12/18/16 06:12 12/18/16 06:12 12/18/16 06:12 12/11/16 17:00 - Medications Medications: Current Medications Acetaminophen (Tylenol 325mg Tab) 650 mg PO Q4 PRN PRN Reason: pain 3 thru 8 Last Admin: 12/17/16 12:52 Dose: 650 mg Al Hydrox/Mg Hydrox/Simethicone (Maalox Plus 30 Ml) 30 ml PO Q6 PRN PRN Reason: Indigestion / Heartburn Last Admin: 12/18/16 12:14 Dose: 30 ml Benztropine Mesylate (Cogentin) 1 mg PO [facility] Last Admin: 12/17/16 21:10 Dose: 1 mg Benztropine Mesylate (Cogentin) 1 mg PO DAILY [facility] Last Admin: 12/18/16 08:50 Dose: 1 mg Clonazepam (Klonopin) 1 mg PO BID [facility] Last Admin: 12/18/16 08:54 Dose: 1 mg Diphenhydramine HCl (Benadryl) 50 mg PO Q6 PRN PRN Reason: eps Last Admin: 12/17/16 03:26 Dose: 50 mg Diphenhydramine HCl (Benadryl) 50 mg IM Q6 PRN PRN Reason: severe eps if can not swallow Divalproex Sodium (Depakote Dr(*Bid*)) 1,000 mg PO [facility] Last Admin: 12/17/16 21:10 Dose: 1,000 mg Fluticasone Propionate (Flonase) 2 spr ARNOLDO DAILY [facility] Last Admin: 12/18/16 08:51 Dose: 2 spr Haloperidol (Haldol) 5 mg PO Q4 PRN PRN Reason: Agitation Last Admin: 12/17/16 03:26 Dose: 5 mg Haloperidol Lactate (Haldol) 5 mg IM Q4 PRN PRN Reason: severe agitation Hydrochlorothiazide (Microzide) 12.5 mg PO DAILY [facility] Last Admin: 12/18/16 08:49 Dose: 12.5 mg Lorazepam (Ativan) 2 mg PO Q4 PRN PRN Reason: Agitation Last Admin: 12/14/16 13:31 Dose: 2 mg Lorazepam (Ativan) 2 mg IM Q6 PRN PRN Reason: severe agitation Magnesium Hydroxide (Milk Of Magnesia) 30 ml PO HS PRN PRN Reason: Constipation Last Admin: 12/17/16 05:51 Dose: 30 ml Pantoprazole Sodium (Protonix Ec Tab) 40 mg PO DAILY [facility] Last Admin: 12/18/16 08:47 Dose: 40 mg Quetiapine Fumarate (Seroquel) 100 mg PO DAILY [facility] Last Admin: 12/18/16 08:51 Dose: 100 mg Quetiapine Fumarate (Seroquel) 200 mg PO HS [facility] Last Admin: 12/17/16 21:10 Dose: 200 mg Risperidone (Risperdal M-Tab) 3 mg PO BID [facility] Last Admin: 12/18/16 08:47 Dose: 3 mg Fluticasone/Salmeterol (Advair Diskus 250/50) 1 puff INH Q12 [facility] Last Admin: 12/18/16 08:46 Dose: 1 puff Sodium Chloride (Sodium Chloride Tab) 1 gm PO BID [facility] Last Admin: 12/18/16 08:50 Dose: 1 gm Valsartan (Diovan) 80 mg PO DAILY [facility] Last Admin: 12/18/16 08:49 Dose: 80 mg - Labs Labs: 12/17/16 05:30 12/18/16 08:00 PT 10.7 SECONDS (9.6-11.2) 12/10/16 11:12 INR 1.03 (0.92-1.08) 12/10/16 11:12 APTT 27.8 SECONDS (23.3-32.5) 12/10/16 11:12 - Constitutional Appears: No Acute Distress - Head Exam Head Exam: NORMAL INSPECTION - Eye Exam Eye Exam: PERRL - ENT Exam ENT Exam: Normal Oropharynx - Neck Exam Neck Exam: Normal Inspection - Respiratory Exam Respiratory Exam: Decreased Breath Sounds (at bases) - Cardiovascular Exam Cardiovascular Exam: REGULAR RHYTHM - GI/Abdominal Exam GI & Abdominal Exam: Soft, Normal Bowel Sounds - Extremities Exam Extremities Exam: Normal Inspection - Back Exam Back Exam: NORMAL INSPECTION - Neurological Exam Neurological Exam: Awake Additional comments: No focal motor sensory deficit, - Psychiatric Exam Psychiatric exam: Anxious - Skin Skin Exam: Warm Assessment and Plan - Assessment and Plan (Free Text) Assessment: COPD Bronchial Asthma HTN High Cholesterol GERD Hyponatremia CKD Hydronephrosis. Plan: Renal US severe B/L hydronephrosis , Hyponatremia corrected , see orders , f/u Renal consult
[2016-12-18] MEDS: Divalproex 500 mg DR(BID formulation) PO SCH (21:07)
[2016-12-19 07:30] LABS: ALKALINE PHOSPHATASE 73 U/L (38-126); ALT/SGPT 30 U/L (21-72); AST/SGOT 32 U/L (17-59); BILIRUBIN,TOTAL 0.6 mg/dl (0.2-1.3); BLOOD UREA NITROGEN 41 mg/dl (9-20); CARBON DIOXIDE 28 mmol/L (22-30); CHLORIDE 96 mmol/L (98-107); GFR AFRICAN-AMERICAN > 60; GLUCOSE,RANDOM 90 mg/dL (75-110); PHOSPHOROUS 4.7 mg/dl (2.5-4.5); POTASSIUM 4.8 MMOL/L (3.6-5.0); SODIUM 137 mmol/l (132-148); TOTAL PROTEIN 7.4 G/DL (6.3-8.2)
[2016-12-19 07:43] LABS: BASO % 0.3 % (0.0-2.0); EOS # 0.1 K/uL (0.0-0.7); EOS % 1.5 % (0.0-4.0); LYMPH # 1.7 K/uL (1.0-4.3); LYMPH % 28.7 % (20.0-40.0); MEAN CORPUSCULAR HEMOGLOBIN 30.6 pg (27.0-31.0); MEAN CORPUSCULAR HGB CONC 33.6 g/dL (33.0-37.0); MEAN PLATELET VOLUME 7.7 fl (7.2-11.7); MONO # 0.8 K/uL (0.0-0.8); MONO % 12.7 % (0.0-10.0); NEUT # 3.4 K/uL (1.8-7.0); NEUT % 56.8 % (50.0-75.0); NRBC % 0.1 % (0.0-0.0); WHITE BLOOD COUNT 6.1 K/uL (4.8-10.8)
[2016-12-19] MEDS: Fluticasone-Salmeterol 250-50mcg Diskus INH SCH ×2 (08:45→21:11)
[2016-12-19] MEDS: Pantoprazole 40 mg EC Tab PO SCH (08:47)
[2016-12-19] MEDS: Risperidone M tab 1 MG PO SCH (08:48)
--- NOTE | 2016-12-19 14:38 | PCM.PYCHPN ---
Psychiatric Progress Note - Psychiatric Progress Note Patient seen today, length of contact: Patient evaluated, chart reviewed, case discussed with team Patient Chief Complaint: "I'm okay" Problems Identified/Issues Discussed: Patient continues to be disorganized, loud and intrusive. He denies AH/VH/SI/HI /paranoia, but seems to be internally preoccupied and is non-linear on conversation. Medication Change: Yes (Increase Risperdal to 3 mg PO Daily/ 4 mg PO HS) Medical Record Reviewed: Yes Mental Status Examination - Cognitive Function Orientation: Person, Place, Situation, Time Memory: Intact Attention: WNL Concentration: WNL Association: Loose Fund of Knowledge: WNL Decription of patient's judgement and insights: Poor I/J - Mood Mood: Anxious - Affect Affect: Other (Labile) - Speech Speech: Loud - Formal Thought Process Formal Thought Process: Paranoia, Loosening of associations Psychotic Thoughts and Behaviors: +Paranoia, disorganized, but denies AH/VH - Suicidal Ideation Suicidal Ideation: No - Homicidal Ideation Homicidal Ideation: No Goal/Treatment Plan - Goal/Treatment Plan Need for Continued Stay: Remain at risks for inpatient hospitalization, Discharge may exacerbated symptoms Progress Toward Problem(s) and Goals/Treatment Plan: 51 yo male with Schizoaffective disorder continues to be labile and acutely psychotic. -Continue Seroquel 100 mg Daily/ 200 mg PO HS -Increase Risperdal to 3 mg PO AM/ 4 mg PO HS -Medicine consult in progress -Continue other medications -Individual, group and milieu tx Estimated Date of D/C: 12/23/16
--- NOTE | 2016-12-19 18:57 | CP.PCM.CON ---
History of Present Illness - History of Present Illness History of Present Illness: REASONS FOR CONSULT : SEVERE CUAUHTEMOC HYDRONEPHROSIS PRE RENAL HYDRONEPHROSIS MILD HYPONATREMIA PT IS WELL KNOWN TO ME FROM PREVIOUS ADDMISION AND ALSO FROM MY OFFICE VISITS History of Present Illness: 51 yrs old ,male [facility] anxious, agitated , paranoid , not sleeping Psych Hx Bipolar disorder , Schizophrenia. PMHx COPD Bronchial Asthma , Allergic Rhinitis , HTN , High Cholesterol , CKD , Hydronephrosis , PCK , TURP , GERD , Hyponatremia Past Patient History - Past Medical History & Family History Past Medical History?: Yes - Past Social History Smoking Status: Never Smoked Alcohol: None Drugs: Denies Home Situation {Lives}: With Family - CARDIAC Hx Hypertension: Yes (10 yrs) - PULMONARY Hx Asthma: Yes Hx Tuberculosis: No - NEUROLOGICAL HX Cerebrovascular Accident: No Hx Seizures: No - HEENT Hx HEENT Problems: No - RENAL Hx Chronic Kidney Disease: Yes - ENDOCRINE/METABOLIC Hx Endocrine Disorders: No - HEMATOLOGICAL/ONCOLOGICAL Hx Blood Disorders: No Hx Cancer: No Hx Human Immunodeficiency Virus (HIV): No - INTEGUMENTARY Hx Dermatological Problems: No - MUSCULOSKELETAL/RHEUMATOLOGICAL Hx Musculoskeletal Disorders: Yes Hx Falls: Yes - GASTROINTESTINAL Hx Gastrointestinal Disorders: Yes Hx Gastroesophageal Reflux: Yes - GENITOURINARY/GYNECOLOGICAL Hx Genitourinary Disorders: Yes Hx Sexually Transmitted Disorders: No Other/Comment: prostate surgery 5 yrs ago - PSYCHIATRIC Hx Anxiety: Yes Hx Bipolar Disorder: Yes Hx Psychosis: Yes Hx Schizophrenia: Yes Hx Substance Use: No - SURGICAL HISTORY Hx Surgeries: Yes Hx Coronary Artery Bypass Graft: No Other/Comment: prostate surgery 5 yrs ago - ANESTHESIA Hx Anesthesia: Yes Hx Anesthesia Reactions: No Meds Allergies/Adverse Reactions: Allergies Allergy/AdvReac Type Severity Reaction Status Date / Time pear Allergy RASH Verified 12/10/16 10:05 - Medications Medications: Current Medications Acetaminophen (Tylenol 325mg Tab) 650 mg PO Q4 PRN PRN Reason: pain 3 thru 8 Last Admin: 12/19/16 15:54 Dose: 650 mg Al Hydrox/Mg Hydrox/Simethicone (Maalox Plus 30 Ml) 30 ml PO Q6 PRN PRN Reason: Indigestion / Heartburn Last Admin: 12/18/16 12:14 Dose: 30 ml Benztropine Mesylate (Cogentin) 1 mg PO Q12 [facility] Clonazepam (Klonopin) 1 mg PO BID PRN PRN Reason: Anxiety Diphenhydramine HCl (Benadryl) 50 mg PO Q6 PRN PRN Reason: eps Last Admin: 12/17/16 03:26 Dose: 50 mg Diphenhydramine HCl (Benadryl) 50 mg IM Q6 PRN PRN Reason: severe eps if can not swallow Divalproex Sodium (Depakote Dr(*Bid*)) 1,000 mg PO HS [facility] Last Admin: 12/18/16 21:07 Dose: 1,000 mg Fluticasone Propionate (Flonase) 2 spr ARNOLDO DAILY [facility] Last Admin: 12/19/16 08:46 Dose: 2 spr Haloperidol (Haldol) 5 mg PO Q4 PRN PRN Reason: Agitation Last Admin: 12/17/16 03:26 Dose: 5 mg Haloperidol Lactate (Haldol) 5 mg IM Q4 PRN PRN Reason: severe agitation Hydrochlorothiazide (Microzide) 12.5 mg PO DAILY [facility] Last Admin: 12/19/16 08:47 Dose: 12.5 mg Lorazepam (Ativan) 2 mg PO Q4 PRN PRN Reason: Agitation Last Admin: 12/14/16 13:31 Dose: 2 mg Lorazepam (Ativan) 2 mg IM Q6 PRN PRN Reason: severe agitation Magnesium Hydroxide (Milk Of Magnesia) 30 ml PO HS PRN PRN Reason: Constipation Last Admin: 12/17/16 05:51 Dose: 30 ml Pantoprazole Sodium (Protonix Ec Tab) 40 mg PO DAILY [facility] Last Admin: 12/19/16 08:47 Dose: 40 mg Quetiapine Fumarate (Seroquel) 100 mg PO DAILY [facility] Last Admin: 12/19/16 08:48 Dose: 100 mg Quetiapine Fumarate (Seroquel) 200 mg PO HS [facility] Last Admin: 12/18/16 21:07 Dose: 200 mg Risperidone (Risperdal Tab) 3 mg PO DAILY [facility] Risperidone (Risperdal Tab) 4 mg PO HS [facility] Fluticasone/Salmeterol (Advair Diskus 250/50) 1 puff INH Q12 [facility] Last Admin: 12/19/16 08:45 Dose: 1 puff Valsartan (Diovan) 80 mg PO DAILY [facility] Last Admin: 12/19/16 08:46 Dose: 80 mg Results - Vital Signs Recent Vital Signs: Last Vital Signs Temp 97.5 F L 12/19/16 15:54 Pulse 100 H 12/19/16 15:54 Resp 20 12/19/16 15:54 BP 132/89 12/19/16 15:54 Pulse Ox 99 12/11/16 17:00 - Labs Result Diagrams: 12/19/16 06:50 12/19/16 06:50 Labs: Laboratory Results - last 24 hr 12/19/16 06:50 WBC 6.1 RBC 3.96 L Hgb 12.1 Hct 36.0 MCV 91.0 MCH 30.6 MCHC 33.6 RDW 14.0 Plt Count 231 MPV 7.7 Neut % (Auto) 56.8 Lymph % (Auto) 28.7 Jones % (Auto) 12.7 H Eos % (Auto) 1.5 Baso % (Auto) 0.3 Neut # 3.4 Lymph # 1.7 Jones # 0.8 Eos # 0.1 Baso # 0.0 Sodium 137 Potassium 4.8 Chloride 96 L Carbon Dioxide 28 Anion Gap 18 BUN 41 H Creatinine 1.3 Est GFR ( Amer) > 60 Est GFR (Non-Af Amer) 58 Random Glucose 90 Calcium 10.0 Phosphorus 4.7 H Total Bilirubin 0.6 AST 32 ALT 30 Alkaline Phosphatase 73 Total Protein 7.4 Albumin 3.7 Globulin 3.7 Albumin/Globulin Ratio 1.0 Valproic Acid 86.5 Assessment & Plan - Assessment and Plan (Free Text) Assessment: H/O SEVERE CUAUHTEMOC HYDRO .. CHRONIC H/O BPH PRE RENAL AZOTEMIA MILD HYPONATREMIA P : C/O CURRENT CARE D/C SODIUM BICARB PROSTATE SONO CONSULT WILL F/U CLOSELY - Date & Time Date: 12/19/16 Time: 15:00
--- NOTE | 2016-12-19 19:41 | CON ---
DATE: 12/19/2016 TIME OF CONSULTATION: Roughly 6:30 p.m. BRIEF HISTORY: The patient is a 51-year-old male from [place] with a history of some mental retardation and some schizophrenia as the reason for his psychiatric admission to [facility]. The patient was recently found to have severe bilateral hydronephrosis on a recent renal ultrasound on 12/17/2016 requiring a nephrology consultation and a urologic consultation. The original reason for the ultrasound was for persistent hyponatremia, and that was also the reason for the nephrology consult. The patient does have a prior history of being catheterized and he was being followed by Dr. Martines, a urologist here at [facility]. PAST SURGICAL HISTORY: The patient denies any prior surgical history. SOCIAL HISTORY: No history of any tobacco use or alcohol use. ALLERGIES: He has no known allergies to any medications. PHYSICAL EXAMINATION: ABDOMEN: Soft, not distended or tender. No CVA tenderness. No suprapubic tenderness. RECTAL: He has normal rectal tone without fluctuance or masses. Prostate feels to be about average size without nodules or indurations with a palpable median sulcus. HEENT: Grossly within normal limits. LABORATORY EVALUATION: On 12/19/2016, shows a CBC with a WBC count of 6.1, hemoglobin of 12.1, hematocrit 36.0, and a platelet count of 231,000. His chem profile showed a sodium of 137, which is now back to normal, potassium 4.8, chloride 96 (which is low), CO2 28, BUN and creatinine of 41 and 1.3 respectively with a GFR of 58. Calcium is 10.0 and a random glucose was 90. Phosphorus is 4.7. Urinalysis on 12/17/2016 was normal except for a protein of 30. A urine culture on 12/17/2016 showed no growth. DIAGNOSTIC IMPRESSION: At this time is bilateral severe hydronephrosis. PLAN: To schedule the patient for a bladder ultrasound for pre- and postvoid residual and also measurement of his prostate. The patient is also scheduled for a prostate ultrasound. We will also order a PSA and free PSA for this patient. Mik Gauthier MD cc: [phone] TT: 12/19/2016 19:41:02 Confirmation # [id number] Dictation # [id number] gloria CANTU
[2016-12-19] MEDS: Divalproex 500 mg DR(BID formulation) PO SCH (21:11)
[2016-12-20] MEDS: Fluticasone-Salmeterol 250-50mcg Diskus INH SCH ×2 (08:06→21:31)
[2016-12-20] MEDS: Pantoprazole 40 mg EC Tab PO SCH (08:09)
--- NOTE | 2016-12-20 10:09 | PCM.PYCHPN ---
Psychiatric Progress Note - Psychiatric Progress Note Patient seen today, length of contact: Patient evaluated, chart reviewed, case discussed with team Patient Chief Complaint: "I'm okay" Problems Identified/Issues Discussed: Patient continues to be odd at times, non-linear on conversation, disorganized, loud and intrusive. He denies AH/VH/SI/HI/paranoia, but seems to be internally preoccupied. Medication Change: Yes (Increase Risperdal to 4 mg PO Q12 hr) Medical Record Reviewed: Yes Mental Status Examination - Cognitive Function Orientation: Person, Place, Situation, Time Memory: Intact Attention: WNL Concentration: WNL Association: Loose Fund of Knowledge: WNL Decription of patient's judgement and insights: Poor I/J - Mood Mood: Anxious - Affect Affect: Other (Labile) - Speech Speech: Loud - Formal Thought Process Formal Thought Process: Paranoia, Loosening of associations Psychotic Thoughts and Behaviors: Denies AH/VH - Suicidal Ideation Suicidal Ideation: No - Homicidal Ideation Homicidal Ideation: No Goal/Treatment Plan - Goal/Treatment Plan Need for Continued Stay: Remain at risks for inpatient hospitalization, Discharge may exacerbated symptoms Progress Toward Problem(s) and Goals/Treatment Plan: 51 yo male with Schizoaffective disorder continues to be labile and acutely psychotic. -Continue Seroquel 100 mg Daily/ 200 mg PO HS -Increase Risperdal to 4 mg PO Q12 -Medicine consult -Continue other medications -Individual, group and milieu tx Estimated Date of D/C: 12/23/16
--- NOTE | 2016-12-20 16:21 | CP.PCM.PN ---
Subjective - Date & Time of Evaluation Date of Evaluation: 12/20/16 Time of Evaluation: 10:30 - Subjective Subjective: F/U COPD Bronchial Asthma/HTN Pt awake, no A/D, appear anxious but cooperating. Objective - Vital Signs/Intake and Output Vital Signs (last 24 hours): Temp Pulse Resp BP Pulse Ox 98.4 F 103 H 20 132/88 99 12/20/16 15:43 12/20/16 15:43 12/20/16 15:43 12/20/16 15:43 12/11/16 17:00 - Medications Medications: Current Medications Acetaminophen (Tylenol 325mg Tab) 650 mg PO Q4 PRN PRN Reason: pain 3 thru 8 Last Admin: 12/20/16 03:02 Dose: 650 mg Al Hydrox/Mg Hydrox/Simethicone (Maalox Plus 30 Ml) 30 ml PO Q6 PRN PRN Reason: Indigestion / Heartburn Last Admin: 12/18/16 12:14 Dose: 30 ml Benztropine Mesylate (Cogentin) 1 mg PO Q12 [facility] Last Admin: 12/20/16 08:07 Dose: 1 mg Clonazepam (Klonopin) 1 mg PO BID PRN PRN Reason: Anxiety Diphenhydramine HCl (Benadryl) 50 mg PO Q6 PRN PRN Reason: eps Last Admin: 12/17/16 03:26 Dose: 50 mg Diphenhydramine HCl (Benadryl) 50 mg IM Q6 PRN PRN Reason: severe eps if can not swallow Divalproex Sodium (Depakote Dr(*Bid*)) 1,000 mg PO HS [facility] Last Admin: 12/19/16 21:11 Dose: 1,000 mg Fluticasone Propionate (Flonase) 2 spr ARNOLDO DAILY [facility] Last Admin: 12/20/16 08:08 Dose: 2 spr Haloperidol (Haldol) 5 mg PO Q4 PRN PRN Reason: Agitation Last Admin: 12/17/16 03:26 Dose: 5 mg Haloperidol Lactate (Haldol) 5 mg IM Q4 PRN PRN Reason: severe agitation Hydrochlorothiazide (Microzide) 12.5 mg PO DAILY [facility] Last Admin: 12/20/16 08:09 Dose: 12.5 mg Lorazepam (Ativan) 2 mg PO Q4 PRN PRN Reason: Agitation Last Admin: 12/14/16 13:31 Dose: 2 mg Lorazepam (Ativan) 2 mg IM Q6 PRN PRN Reason: severe agitation Magnesium Hydroxide (Milk Of Magnesia) 30 ml PO HS PRN PRN Reason: Constipation Last Admin: 12/17/16 05:51 Dose: 30 ml Pantoprazole Sodium (Protonix Ec Tab) 40 mg PO DAILY [facility] Last Admin: 12/20/16 08:09 Dose: 40 mg Quetiapine Fumarate (Seroquel) 100 mg PO DAILY [facility] Last Admin: 12/20/16 08:10 Dose: 100 mg Quetiapine Fumarate (Seroquel) 200 mg PO HS [facility] Last Admin: 12/19/16 21:11 Dose: 200 mg Risperidone (Risperdal Tab) 4 mg PO Q12 [facility] Fluticasone/Salmeterol (Advair Diskus 250/50) 1 puff INH Q12 [facility] Last Admin: 12/20/16 08:06 Dose: 1 puff Valsartan (Diovan) 80 mg PO DAILY [facility] Last Admin: 12/20/16 08:07 Dose: 80 mg - Labs Labs: 12/19/16 06:50 12/20/16 08:00 PT 10.7 SECONDS (9.6-11.2) 12/10/16 11:12 INR 1.03 (0.92-1.08) 12/10/16 11:12 APTT 27.8 SECONDS (23.3-32.5) 12/10/16 11:12 - Constitutional Appears: No Acute Distress - Head Exam Head Exam: NORMAL INSPECTION - Eye Exam Eye Exam: PERRL - ENT Exam ENT Exam: Normal Oropharynx - Neck Exam Neck Exam: Normal Inspection - Respiratory Exam Respiratory Exam: Decreased Breath Sounds (at bases) - Cardiovascular Exam Cardiovascular Exam: REGULAR RHYTHM - GI/Abdominal Exam GI & Abdominal Exam: Soft, Normal Bowel Sounds - Extremities Exam Extremities Exam: Normal Inspection - Back Exam Back Exam: NORMAL INSPECTION - Neurological Exam Neurological Exam: Awake Additional comments: No focal motor sensory deficit. - Psychiatric Exam Psychiatric exam: Anxious - Skin Skin Exam: Warm Assessment and Plan - Assessment and Plan (Free Text) Assessment: COPD Bronchial Asthma. HTN High Cholesterol GERD Hyponatremia CKD Hydronephrosis Plan: Continue Advair, Flonase, Diovan and rest of Tx. Renal and Urology consult appreciated.
--- NOTE | 2016-12-20 16:33 | CP.PCM.PN ---
Subjective - Date & Time of Evaluation Date of Evaluation: 12/20/16 Time of Evaluation: 15:00 - Subjective Subjective: SEEN ON RENAL F/U NOTES OF MED AND WERE BOTH READ PT FEELS IMPROVED DENIES LOWER URINARY SYMPTOMS Objective - Vital Signs/Intake and Output Vital Signs (last 24 hours): Temp Pulse Resp BP Pulse Ox 98.4 F 103 H 20 132/88 99 12/20/16 15:43 12/20/16 15:43 12/20/16 15:43 12/20/16 15:43 12/11/16 17:00 - Medications Medications: Current Medications Acetaminophen (Tylenol 325mg Tab) 650 mg PO Q4 PRN PRN Reason: pain 3 thru 8 Last Admin: 12/20/16 03:02 Dose: 650 mg Al Hydrox/Mg Hydrox/Simethicone (Maalox Plus 30 Ml) 30 ml PO Q6 PRN PRN Reason: Indigestion / Heartburn Last Admin: 12/18/16 12:14 Dose: 30 ml Benztropine Mesylate (Cogentin) 1 mg PO Q12 [facility] Last Admin: 12/20/16 08:07 Dose: 1 mg Clonazepam (Klonopin) 1 mg PO BID PRN PRN Reason: Anxiety Diphenhydramine HCl (Benadryl) 50 mg PO Q6 PRN PRN Reason: eps Last Admin: 12/17/16 03:26 Dose: 50 mg Diphenhydramine HCl (Benadryl) 50 mg IM Q6 PRN PRN Reason: severe eps if can not swallow Divalproex Sodium (Depakote Dr(*Bid*)) 1,000 mg PO HS [facility] Last Admin: 12/19/16 21:11 Dose: 1,000 mg Fluticasone Propionate (Flonase) 2 spr ARNOLDO DAILY [facility] Last Admin: 12/20/16 08:08 Dose: 2 spr Haloperidol (Haldol) 5 mg PO Q4 PRN PRN Reason: Agitation Last Admin: 12/17/16 03:26 Dose: 5 mg Haloperidol Lactate (Haldol) 5 mg IM Q4 PRN PRN Reason: severe agitation Hydrochlorothiazide (Microzide) 12.5 mg PO DAILY [facility] Last Admin: 12/20/16 08:09 Dose: 12.5 mg Lorazepam (Ativan) 2 mg PO Q4 PRN PRN Reason: Agitation Last Admin: 12/14/16 13:31 Dose: 2 mg Lorazepam (Ativan) 2 mg IM Q6 PRN PRN Reason: severe agitation Magnesium Hydroxide (Milk Of Magnesia) 30 ml PO HS PRN PRN Reason: Constipation Last Admin: 12/17/16 05:51 Dose: 30 ml Pantoprazole Sodium (Protonix Ec Tab) 40 mg PO DAILY [facility] Last Admin: 12/20/16 08:09 Dose: 40 mg Quetiapine Fumarate (Seroquel) 100 mg PO DAILY [facility] Last Admin: 12/20/16 08:10 Dose: 100 mg Quetiapine Fumarate (Seroquel) 200 mg PO HS [facility] Last Admin: 12/19/16 21:11 Dose: 200 mg Risperidone (Risperdal Tab) 4 mg PO Q12 [facility] Fluticasone/Salmeterol (Advair Diskus 250/50) 1 puff INH Q12 [facility] Last Admin: 12/20/16 08:06 Dose: 1 puff Valsartan (Diovan) 80 mg PO DAILY [facility] Last Admin: 12/20/16 08:07 Dose: 80 mg - Labs Labs: 12/19/16 06:50 12/20/16 08:00 PT 10.7 SECONDS (9.6-11.2) 12/10/16 11:12 INR 1.03 (0.92-1.08) 12/10/16 11:12 APTT 27.8 SECONDS (23.3-32.5) 12/10/16 11:12 Assessment and Plan - Assessment and Plan (Free Text) Assessment: SEVERE CHRONIC CUAUHTEMOC HYDRONEPHROSIS DISTENDED BLADDER PER SONO HYPONATREMIA BETTER P : FOR BLADDER AND PROSTATE SONO C/O CURRENT MEDS
--- NOTE | 2016-12-20 19:24 | CP.PCM.CON ---
History of Present Illness - History of Present Illness History of Present Illness: raisa currently sititng with his family, EKG reviewed sinus tachycardia. no acute ischemia. no acute intervention needed. will return for full consultation Past Patient History - Past Medical History & Family History Past Medical History?: Yes - Past Social History Smoking Status: Never Smoked Alcohol: None Drugs: Denies Home Situation {Lives}: With Family - CARDIAC Hx Hypertension: Yes (10 yrs) - PULMONARY Hx Asthma: Yes Hx Tuberculosis: No - NEUROLOGICAL HX Cerebrovascular Accident: No Hx Seizures: No - HEENT Hx HEENT Problems: No - RENAL Hx Chronic Kidney Disease: Yes - ENDOCRINE/METABOLIC Hx Endocrine Disorders: No - HEMATOLOGICAL/ONCOLOGICAL Hx Blood Disorders: No Hx Cancer: No Hx Human Immunodeficiency Virus (HIV): No - INTEGUMENTARY Hx Dermatological Problems: No - MUSCULOSKELETAL/RHEUMATOLOGICAL Hx Musculoskeletal Disorders: Yes Hx Falls: Yes - GASTROINTESTINAL Hx Gastrointestinal Disorders: Yes Hx Gastroesophageal Reflux: Yes - GENITOURINARY/GYNECOLOGICAL Hx Genitourinary Disorders: Yes Hx Sexually Transmitted Disorders: No Other/Comment: prostate surgery 5 yrs ago - PSYCHIATRIC Hx Anxiety: Yes Hx Bipolar Disorder: Yes Hx Psychosis: Yes Hx Schizophrenia: Yes Hx Substance Use: No - SURGICAL HISTORY Hx Surgeries: Yes Hx Coronary Artery Bypass Graft: No Other/Comment: prostate surgery 5 yrs ago - ANESTHESIA Hx Anesthesia: Yes Hx Anesthesia Reactions: No Meds Allergies/Adverse Reactions: Allergies Allergy/AdvReac Type Severity Reaction Status Date / Time pear Allergy RASH Verified 12/10/16 10:05 - Medications Medications: Current Medications Acetaminophen (Tylenol 325mg Tab) 650 mg PO Q4 PRN PRN Reason: pain 3 thru 8 Last Admin: 12/20/16 03:02 Dose: 650 mg Al Hydrox/Mg Hydrox/Simethicone (Maalox Plus 30 Ml) 30 ml PO Q6 PRN PRN Reason: Indigestion / Heartburn Last Admin: 12/18/16 12:14 Dose: 30 ml Benztropine Mesylate (Cogentin) 1 mg PO Q12 [facility] Last Admin: 12/20/16 08:07 Dose: 1 mg Clonazepam (Klonopin) 1 mg PO BID PRN PRN Reason: Anxiety Diphenhydramine HCl (Benadryl) 50 mg PO Q6 PRN PRN Reason: eps Last Admin: 12/17/16 03:26 Dose: 50 mg Diphenhydramine HCl (Benadryl) 50 mg IM Q6 PRN PRN Reason: severe eps if can not swallow Divalproex Sodium (Depakote Dr(*Bid*)) 1,000 mg PO HS [facility] BEDS [facility] Last Admin: 12/19/16 21:11 Dose: 1,000 mg Ergocalciferol (Drisdol 50,000 Intl Units Cap) 1 cap PO Q7D COUNTS INCLUDE 234 BEDS AT [facility] Fluticasone Propionate (Flonase) 2 spr ARNOLDO DAILY [facility] 234 BEDS AT [facility] Last Admin: 12/20/16 08:08 Dose: 2 spr Haloperidol (Haldol) 5 mg PO Q4 PRN PRN Reason: Agitation Last Admin: 12/17/16 03:26 Dose: 5 mg Haloperidol Lactate (Haldol) 5 mg IM Q4 PRN PRN Reason: severe agitation Hydrochlorothiazide (Microzide) 12.5 mg PO DAILY [facility] 234 B[facility]S [facility] Last Admin: 12/20/16 08:09 Dose: 12.5 mg Lorazepam (Ativan) 2 mg PO Q4 PRN PRN Reason: Agitation Last Admin: 12/14/16 13:31 Dose: 2 mg Lorazepam (Ativan) 2 mg IM Q6 PRN PRN Reason: severe agitation Magnesium Hydroxide (Milk Of Magnesia) 30 ml PO HS PRN PRN Reason: Constipation Last Admin: 12/17/16 05:51 Dose: 30 ml Pantoprazole Sodium (Protonix Ec Tab) 40 mg PO DAILY [facility]S [facility] Last Admin: 12/20/16 08:09 Dose: 40 mg Quetiapine Fumarate (Seroquel) 100 mg PO DAILY [facility] 234 [facility]S [facility] Last Admin: 12/20/16 08:10 Dose: 100 mg Quetiapine Fumarate (Seroquel) 200 mg PO [facility] Last Admin: 12/19/16 21:11 Dose: 200 mg Risperidone (Risperdal Tab) 4 mg PO Q12 [facility] 234 B[facility]S AT [facility] Fluticasone/Salmeterol (Advair Diskus 250/50) 1 puff INH Q12 [facility] 234 B[facility]S [facility] Last Admin: 12/20/16 08:06 Dose: 1 puff Valsartan (Diovan) 80 mg PO DAILY [facility]S [facility] Last Admin: 12/20/16 08:07 Dose: 80 mg Vitamin B Complex/Vit C/Folic Acid (Nephro-Jason) 1 tab PO DAILY [facility] 234 BEDS AT [facility] Results - Vital Signs Recent Vital Signs: Last Vital Signs Temp 98.4 F 04/18/17 15:43 Pulse 103 H 12/20/16 15:43 Resp 20 12/20/16 15:43 BP 132/88 12/20/16 15:43 Pulse Ox 99 12/11/16 17:00 - Labs Result Diagrams: 12/19/16 06:50 12/20/16 08:00 Labs: Laboratory Results - last 24 hr 12/19/16 12/20/16 06:50 08:00 Creatinine 1.3 PTH w/Ion &Tot Calcium 22 Urine Collection Time 24 Urine Total Volume 5400 Creatinine Clearance 67.0 L
[2016-12-20 20:53] LABS: TOTAL PSA 0.1 ng/mL (<=4.0)
[2016-12-20] MEDS: Divalproex 500 mg DR(BID formulation) PO SCH (21:32)
[2016-12-20] MEDS: Ergocalciferol 50,000 Intl Units Cap PO SCH (21:33)
[2016-12-20 23:01] LABS: CALCIUM 9.9 mg/dL (8.6-10.3)
[2016-12-21 07:15] LABS: BASO % 0.3 % (0.0-2.0); EOS % 0.3 % (0.0-4.0); HEMATOCRIT 36.7 % (35.0-51.0); LYMPH % 18.3 % (20.0-40.0); MEAN CELL VOLUME 91.5 fl (80.0-94.0); MEAN CORPUSCULAR HEMOGLOBIN 30.5 pg (27.0-31.0); MEAN CORPUSCULAR HGB CONC 33.4 g/dL (33.0-37.0); MEAN PLATELET VOLUME 7.9 fl (7.2-11.7); MONO # 0.9 K/uL (0.0-0.8); MONO % 8.3 % (0.0-10.0); NEUT # 7.8 K/uL (1.8-7.0); NEUT % 72.8 % (50.0-75.0); NRBC % 0.1 % (0.0-0.0); WHITE BLOOD COUNT 10.7 K/uL (4.8-10.8)
[2016-12-21 07:28] LABS: BLOOD UREA NITROGEN 33 mg/dl (9-20); CALCIUM 9.7 mg/dL (8.4-10.2); CARBON DIOXIDE 28 mmol/L (22-30); CHLORIDE 93 mmol/L (98-107); GFR AFRICAN-AMERICAN > 60; GLUCOSE,RANDOM 90 mg/dL (75-110); POTASSIUM 4.2 MMOL/L (3.6-5.0); SODIUM 134 mmol/l (132-148)
[2016-12-21] MEDS: Multivitamin Vitamin B Complex (Nephro-Vite) Tab PO SCH (08:46)
[2016-12-21] MEDS: Fluticasone-Salmeterol 250-50mcg Diskus INH SCH ×2 (08:47→21:27)
[2016-12-21] MEDS: Pantoprazole 40 mg EC Tab PO SCH (08:48)
--- NOTE | 2016-12-21 08:57 | PCM.PYCHPN ---
Psychiatric Progress Note - Psychiatric Progress Note Patient seen today, length of contact: Patient evaluated, chart reviewed, case discussed with team Patient Chief Complaint: "I'm okay" Problems Identified/Issues Discussed: Patient is starting to improving clinically, is less loud and intrusive, more redirectable, but continues to be loose and disorganized at times. He denies AH/VH/SI/HI/paranoia. Diagnostic Results: Renal Consult: SEVERE CHRONIC CUAUHTEMOC HYDRONEPHROSIS DISTENDED BLADDER PER SONO HYPONATREMIA BETTER P : FOR BLADDER AND PROSTATE SONO C/O CURRENT MEDS Medication Change: No Medical Record Reviewed: Yes Mental Status Examination - Cognitive Function Orientation: Person, Place, Situation, Time Memory: Intact Attention: WNL Concentration: WNL Association: Loose Fund of Knowledge: WNL Decription of patient's judgement and insights: Poor insight/ limited judgment - Mood Mood: Anxious - Affect Affect: Other (Labile) - Speech Speech: Loud - Formal Thought Process Formal Thought Process: Loosening of associations Psychotic Thoughts and Behaviors: Denies AH/VH - Suicidal Ideation Suicidal Ideation: No - Homicidal Ideation Homicidal Ideation: No Goal/Treatment Plan - Goal/Treatment Plan Need for Continued Stay: Remain at risks for inpatient hospitalization, Discharge may exacerbated symptoms Progress Toward Problem(s) and Goals/Treatment Plan: 51 yo male with Schizoaffective disorder continues to be labile, but is starting to improve clinically. -Continue Seroquel 100 mg Daily/ 200 mg PO HS -Continue Risperdal 4 mg PO Q12 -Medicine consult -Continue other medications -Individual, group and milieu tx Estimated Date of D/C: 12/23/16
--- NOTE | 2016-12-21 11:25 | CARD ---
APPROVED REPORT EXAM: Two-dimensional and M-mode echocardiogram with Doppler and color Doppler. Other Information Quality : GoodRhythm : INDICATION Abnormal EKG/Arrhythmia 2D DIMENSIONS IVSd1.18 (0.7-1.1cm)LVDd4.52 (3.9-5.9cm) PWd0.86 (0.7-1.1cm)IVSs1.41 (0.8-1.2cm) LVDs3.51 (2.5-4.0cm)FS (%) 22.3 % PWs1.28 (0.8-1.2cm)LVEF (%)60.0 (>50%) M-Mode DIMENSIONS Left Atrium (MM)4.31 (2.5-4.0cm)IVSd0.76 (0.7-1.1cm) Aortic Root3.32 (2.2-3.7cm)LVDd5.29 (4.0-5.6cm) Aortic Cusp Exc.2.53 (1.5-2.0cm)PWd1.10 (0.7-1.1cm) IVSs1.10 cmFS (%) 39 % LVDs3.21 (2.0-3.8cm)PWs1.25 cm Aortic Valve AoV Peak Auxjzhtu401.6cm/Clarissa Peak GR.5mmHgLVOT Peak Achvulnw36.0cm/s Mitral Valve MV E Mfyexdtt05.7cm/sMV DECEL [id number] A Nfxdbmeb84.4cm/s MV MTJ13dsW/A ratio1.1MVA (PHT)4.52cm2 TDI Lateral E' Peak V14.86cm/sMedial E' Peak V11.34cm/sE/Lateral E'4.7 E/Medial E'6.1 Tricuspid Valve TR Peak Ocisdiid805uu/sTR Peak Gr.4rlChWFEZ02ytIg LEFT VENTRICLE The left ventricle is normal size. There is normal left ventricular wall thickness. The left ventricular function is normal. The left ventricular ejection fraction is 55% There is normal LV segmental wall motion. The left ventricular diastolic function is normal. No left ventricle thrombus noted on this study. There is no ventricular septal defect visualized. There is no left ventricular aneurysm. There is no mass noted in the left ventricle. RIGHT VENTRICLE The right ventricle is normal size. There is normal right ventricular wall thickness. The right ventricular systolic function is normal. ATRIA The left atrium size is normal. The right atrium size is normal. The interatrial septum is intact with no evidence for an atrial septal defect. AORTIC VALVE The aortic valve is normal in structure and function.Incidentally, however, the non-coronary cusp is thickened with a non-mobile 1 cm x .5 cm mass. This could represent a papillary fibroelastoma or a healed vegetation. No aortic regurgitation is present. There is no aortic valvular stenosis. There is no aortic valvular vegetation. MITRAL VALVE The mitral valve is normal in structure and function. There is no evidence of mitral valve prolapse. There is no mitral valve stenosis. There is no mitral valve regurgitation noted. TRICUSPID VALVE The tricuspid valve is normal in structure and function. There is no tricuspid valve regurgitation noted. There is no tricuspid valve prolapse or vegetation. There is no tricuspid valve stenosis. PULMONIC VALVE The pulmonary valve is normal in structure and function. There is no pulmonic valvular regurgitation. There is no pulmonic valvular stenosis. GREAT VESSELS The aortic root is normal in size. The ascending aorta is normal in size. The IVC is normal in size and collapses >50% with inspiration. PERICARDIAL EFFUSION The pericardium appears normal. There is no pleural effusion. <Conclusion> Normal LV Systolic Function 1cm x .5 cm non-mobile mass on the non-coronary cusp of the Aortic Valve which could represent a fibroelastoma or healed vegitation. Clinical Correlation is suggested.
--- NOTE | 2016-12-21 11:41 | CARD ---
APPROVED REPORT EKG Measurement Heart [id number] <Conclusion> Sinus tachycardia Otherwise normal ECG
--- NOTE | 2016-12-21 13:27 | CP.PCM.PN ---
Subjective - Date & Time of Evaluation Date of Evaluation: 12/21/16 Time of Evaluation: 09:00 - Subjective Subjective: F/U COPD B/A, HTN. Pt appear anxious, no specific complaints. Objective - Vital Signs/Intake and Output Vital Signs (last 24 hours): Temp Pulse Resp BP Pulse Ox 98.1 F 90 19 133/85 99 12/21/16 06:00 12/21/16 06:00 12/21/16 06:00 12/21/16 06:00 12/11/16 17:00 - Medications Medications: Current Medications Acetaminophen (Tylenol 325mg Tab) 650 mg PO Q4 PRN PRN Reason: pain 3 thru 8 Last Admin: 12/20/16 03:02 Dose: 650 mg Al Hydrox/Mg Hydrox/Simethicone (Maalox Plus 30 Ml) 30 ml PO Q6 PRN PRN Reason: Indigestion / Heartburn Last Admin: 12/18/16 12:14 Dose: 30 ml Benztropine Mesylate (Cogentin) 1 mg PO Q12 [facility] Last Admin: 12/21/16 08:46 Dose: 1 mg Clonazepam (Klonopin) 1 mg PO BID PRN PRN Reason: Anxiety Diphenhydramine HCl (Benadryl) 50 mg PO Q6 PRN PRN Reason: eps Last Admin: 12/17/16 03:26 Dose: 50 mg Diphenhydramine HCl (Benadryl) 50 mg IM Q6 PRN PRN Reason: severe eps if can not swallow Divalproex Sodium (Depakote Dr(*Bid*)) 1,000 mg PO HS [facility] Last Admin: 12/20/16 21:32 Dose: 1,000 mg Ergocalciferol (Drisdol 50,000 Intl Units Cap) 1 cap PO Q7D [facility] Last Admin: 12/20/16 21:33 Dose: 1 cap Fluticasone Propionate (Flonase) 2 spr ARNOLDO DAILY [facility] Last Admin: 12/21/16 08:45 Dose: 2 spr Haloperidol (Haldol) 5 mg PO Q4 PRN PRN Reason: Agitation Last Admin: 12/17/16 03:26 Dose: 5 mg Haloperidol Lactate (Haldol) 5 mg IM Q4 PRN PRN Reason: severe agitation Hydrochlorothiazide (Microzide) 12.5 mg PO DAILY [facility] Last Admin: 12/21/16 08:46 Dose: 12.5 mg Lorazepam (Ativan) 2 mg PO Q4 PRN PRN Reason: Agitation Last Admin: 12/14/16 13:31 Dose: 2 mg Lorazepam (Ativan) 2 mg IM Q6 PRN PRN Reason: severe agitation Magnesium Hydroxide (Milk Of Magnesia) 30 ml PO HS PRN PRN Reason: Constipation Last Admin: 12/17/16 05:51 Dose: 30 ml Pantoprazole Sodium (Protonix Ec Tab) 40 mg PO DAILY [facility] Last Admin: 12/21/16 08:48 Dose: 40 mg Quetiapine Fumarate (Seroquel) 100 mg PO DAILY [facility] Last Admin: 12/21/16 08:49 Dose: 100 mg Quetiapine Fumarate (Seroquel) 200 mg PO HS [facility] Last Admin: 12/20/16 21:33 Dose: 200 mg Risperidone (Risperdal Tab) 4 mg PO Q12 [facility] Last Admin: 12/21/16 08:48 Dose: 4 mg Fluticasone/Salmeterol (Advair Diskus 250/50) 1 puff INH Q12 [facility] Last Admin: 12/21/16 08:47 Dose: 1 puff Valsartan (Diovan) 80 mg PO DAILY [facility] Last Admin: 12/21/16 08:46 Dose: 80 mg Vitamin B Complex/Vit C/Folic Acid (Nephro-Jason) 1 tab PO DAILY [facility] Last Admin: 12/21/16 08:46 Dose: 1 tab - Labs Labs: 12/21/16 06:40 12/21/16 06:40 PT 10.7 SECONDS (9.6-11.2) 12/10/16 11:12 INR 1.03 (0.92-1.08) 12/10/16 11:12 APTT 27.8 SECONDS (23.3-32.5) 12/10/16 11:12 - Constitutional Appears: No Acute Distress - Head Exam Head Exam: NORMAL INSPECTION - Eye Exam Eye Exam: PERRL - ENT Exam ENT Exam: Normal Oropharynx - Neck Exam Neck Exam: Normal Inspection - Respiratory Exam Respiratory Exam: Decreased Breath Sounds (at bases) - Cardiovascular Exam Cardiovascular Exam: REGULAR RHYTHM - GI/Abdominal Exam GI & Abdominal Exam: Soft, Normal Bowel Sounds - Extremities Exam Extremities Exam: Normal Inspection - Back Exam Back Exam: NORMAL INSPECTION - Neurological Exam Neurological Exam: Awake Additional comments: No focal motor sensory deficit. - Psychiatric Exam Psychiatric exam: Anxious - Skin Skin Exam: Warm Assessment and Plan - Assessment and Plan (Free Text) Assessment: COPD Bronchial Asthma HTN High Cholesterol GERD Hyponatremia CKD Hydronephrosis. Plan: BUN: 33 Creatinine: 1.2, Continue Diovan, Advair, Flonase, Tylenol and rest of Tx. F/U Pelvis-Prostatic U-S.
--- NOTE | 2016-12-21 16:00 | US ---
Indication: pre and post void residual urine and prostate measurement Urinary bladder bladder only/residual urine ultrasound Comparison: None Findings: Prevoid urinary bladder measures approximately 18.5 x 10.8 x 9.4 cm, calculated volume 1305 mL. Postvoid urinary bladder volume 20.5 x 10.8 x 10 cm, calculated volume 1158 mL. Bilateral urinary jets are identified. Despite attempts, the prostate gland was not visualized. Impression: Prevoid urinary bladder volume 1305 mL. Postvoid urinary bladder volume 1158 mL. The prostate gland was not visualized.
--- NOTE | 2016-12-21 18:29 | CP.PCM.CON ---
History of Present Illness - History of Present Illness History of Present Illness: I was asked to see patient by Dr. Awad. Patient has a history of HTN, bipolar disorder who presents for treatment. The patient was found to be tachycardic. The patient denies chest pain or dyspnea. He ambulates without difficulty. Review of Systems - Constitutional Constitutional: absent: As Per HPI, Anorexia, Chills, Daytime Sleepiness, Excessive Sweating, Fatigue, Fever, Frequent Falls, Headache, Increased Appetite , Lethargy, Malaise, Night Sweats, Snoring, Sleep Apnea, Weight Gain, Weight Loss, Weakness, Other - EENT Eyes: absent: As Per HPI, Blind Spots, Blurred Vision, Change in Vision, Decreased Night Vision, Diplopia, Discharge, Dry Eye, Exophthalmos, Floaters, Irritation, Itchy Eyes, Loss of Peripheral Vision, Pain, Photophobia, Requires Corrective Lenses, Sees Flashes, Spots in Vision, Tunnel Vision, Other Visual Disturbances, Loss of Vision, Other Ears: absent: As Per HPI, Decreased Hearing, Ear Discharge, Ear Pain, Tinnitus, Abnormal Hearing, Disequilibrium, Dizziness, Other Nose/Mouth/Throat: absent: As Per HPI, Epistaxis, Nasal Congestion, Nasal Discharge, Nasal Obstruction, Nasal Trauma, Nose Pain, Post Nasal Drip, Sinus Pain, Sinus Pressure, Bleeding Gums, Change in Voice, Dental Pain, Dry Mouth, Dysphagia, Halitosis, Hoarsness, Lip Swelling, Mouth Lesions, Mouth Pain, Odynophagia, Sore Throat, Throat Swelling, Tongue Swelling, Facial Pain, Neck Pain, Neck Mass, Other - Cardiovascular Cardiovascular: absent: As Per HPI, Acrocyanosis, Chest Pain, Chest Pain at Rest , Chest Pain with Activity, Claudication, Diaphoresis, Dyspnea, Dyspnea on Exertion, Edema, Irregular Heart Rhythm, Pain Radiating to Arm/Neck/Jaw, Leg Edema, Leg Ulcers, Lightheadedness, Orthopnea, Palpitations, Paroxysmal Nocturnal Dyspnea, Pedal Edema, Radiating Pain, Rapid Heart Rate, Slow Heart Rate, Syncope, Other - Respiratory Respiratory: absent: As Per HPI, Cough, Dyspnea, Hemoptysis, Dyspnea on Exertion , Wheezing, Snoring, Stridor, Pain on Inspiration, Chest Congestion, Excessive Mucous Production, Change in Mucous Color, Pain with Coughing, Other - Gastrointestinal Gastrointestinal: absent: As Per HPI, Abdominal Pain, Belching, Bloating, Change in Bowel Habits, Change in Stool Character, Coffee Ground Emesis, Constipation, Cramping, Diarrhea, Dyspepsia, Dysphagia, Early Satiety, Excessive Flatus, Fecal Incontinence, Heartburn, Hematemesis, Hematochezia, Loose Stools, Melena, Nausea, Odynophagia, Temesmus, Vomiting, Other - Genitourinary Genitourinary: absent: As Per HPI, Change in Urinary Stream, Difficulty Urinating, Dysuria, Flank Pain, Hematuria, Pyuria, Nocturia, Urinary Incontinence, Urinary Frequency, Urinary Hesitance, Urinary Urgency, Voiding Freq/Small Amts, Freq UTI, Hx Renal/Bladder Calculi, Hx /Renal Surgery, Bladder Distension, Other - Musculoskeletal Musculoskeletal: absent: As Per HPI, Abnormal Gait, Arthralgias, Atrophy, Back Pain, Deformity, Joint Swelling, Limited Range of Motion, Loss of Height, Muscle Cramps, Muscle Weakness, Myalgias, Neck Pain, Numbness, Radiating Pain into Limb, Stiffness, Tingling, Other - Integumentary Integumentary: absent: As Per HPI, Acne, Alopecia, Bleeding Lesions, Change in Hair, Change in Nails, Change in Pigmentation, Changing Lesions, Dry Skin, Erythema, Furuncle, Hirsutism, Lesions, New Lesions, Non-Healing Lesions, Photosensitivity, Pruritus, Rash, Skin Pain, Skin Ulcer, Sores, Striae, Swelling , Unusual Bruising, Wounds, Jaundice, Other - Neurological Neurological: absent: As Per HPI, Abnormal Gait, Abnormal Hearing, Abnormal Movements, Abnormal Speech, Behavioral Changes, Burning Sensations, Confusion, Convulsions, Disequilibrium, Dizziness, Numbness, Focal Weakness, Frequent Falls , Headaches, Lack of Coordination, Loss of Vision, Memory Loss, Paresthesias, Radicular Pain, Restless Legs, Sensory Deficit, Syncope, Tingling, Tremor, Vertigo, Weakness, Other Visual Disturbances, Other - Psychiatric Psychiatric: absent: As Per HPI, Abnormal Sleep Pattern, Anhedonia, Anxiety, Auditory Hallucinations, Behavioral Changes, Change in Appetite, Change in Libido, Confusion, Depression, Difficulty Concentrating, Hallucinations, Homicidal Ideation, Hopelessness, Irritability, Memory Loss, Mood Swings, Panic Attacks, Paranoia, Suicidal Ideation, Visual Hallucinations, Tactile Hallucinations, Other - Endocrine Endocrine: absent: As Per HPI, Change in Body Appearance, Change in Libido, Cold Intolorance, Deepening of Voice, Excessive Sweating, Fatigue, Flushing, Heat Intolorance, Increase in Ring/Shoe/Hat Size, Palpitations, Polydipsia, Polyphagia, Polyuria, Other - Hematologic/Lymphatic Hematologic: absent: As Per HPI, Easy Bleeding, Easy Bruising, Lymphadenopathy, Other Past Patient History - Past Medical History & Family History Past Medical History?: Yes - Past Social History Smoking Status: Never Smoked Alcohol: None Drugs: Denies Home Situation {Lives}: With Family - CARDIAC Hx Hypertension: Yes (10 yrs) - PULMONARY Hx Asthma: Yes Hx Tuberculosis: No - NEUROLOGICAL HX Cerebrovascular Accident: No Hx Seizures: No - HEENT Hx HEENT Problems: No - RENAL Hx Chronic Kidney Disease: Yes - ENDOCRINE/METABOLIC Hx Endocrine Disorders: No - HEMATOLOGICAL/ONCOLOGICAL Hx Blood Disorders: No Hx Cancer: No Hx Human Immunodeficiency Virus (HIV): No - INTEGUMENTARY Hx Dermatological Problems: No - MUSCULOSKELETAL/RHEUMATOLOGICAL Hx Musculoskeletal Disorders: Yes Hx Falls: Yes - GASTROINTESTINAL Hx Gastrointestinal Disorders: Yes Hx Gastroesophageal Reflux: Yes - GENITOURINARY/GYNECOLOGICAL Hx Genitourinary Disorders: Yes Hx Sexually Transmitted Disorders: No Other/Comment: prostate surgery 5 yrs ago - PSYCHIATRIC Hx Anxiety: Yes Hx Bipolar Disorder: Yes Hx Psychosis: Yes Hx Schizophrenia: Yes Hx Substance Use: No - SURGICAL HISTORY Hx Surgeries: Yes Hx Coronary Artery Bypass Graft: No Other/Comment: prostate surgery 5 yrs ago - ANESTHESIA Hx Anesthesia: Yes Hx Anesthesia Reactions: No Meds Allergies/Adverse Reactions: Allergies Allergy/AdvReac Type Severity Reaction Status Date / Time pear Allergy RASH Verified 12/10/16 10:05 - Medications Medications: Current Medications Acetaminophen (Tylenol 325mg Tab) 650 mg PO Q4 PRN PRN Reason: pain 3 thru 8 Last Admin: 12/20/16 03:02 Dose: 650 mg Al Hydrox/Mg Hydrox/Simethicone (Maalox Plus 30 Ml) 30 ml PO Q6 PRN PRN Reason: Indigestion / Heartburn Last Admin: 12/18/16 12:14 Dose: 30 ml Benztropine Mesylate (Cogentin) 1 mg PO Q12 [facility] Last Admin: 12/21/16 08:46 Dose: 1 mg Clonazepam (Klonopin) 1 mg PO BID PRN PRN Reason: Anxiety Diphenhydramine HCl (Benadryl) 50 mg PO Q6 PRN PRN Reason: eps Last Admin: 12/17/16 03:26 Dose: 50 mg Diphenhydramine HCl (Benadryl) 50 mg IM Q6 PRN PRN Reason: severe eps if can not swallow Divalproex Sodium (Depakote Dr(*Bid*)) 1,000 mg PO HS [facility] Last Admin: 12/20/16 21:32 Dose: 1,000 mg Ergocalciferol (Drisdol 50,000 Intl Units Cap) 1 cap PO Q7D [facility] Last Admin: 12/20/16 21:33 Dose: 1 cap Fluticasone Propionate (Flonase) 2 spr ARNOLDO DAILY [facility] Last Admin: 12/21/16 08:45 Dose: 2 spr Haloperidol (Haldol) 5 mg PO Q4 PRN PRN Reason: Agitation Last Admin: 12/17/16 03:26 Dose: 5 mg Haloperidol Lactate (Haldol) 5 mg IM Q4 PRN PRN Reason: severe agitation Hydrochlorothiazide (Microzide) 12.5 mg PO DAILY [facility] Last Admin: 12/21/16 08:46 Dose: 12.5 mg Lorazepam (Ativan) 2 mg PO Q4 PRN PRN Reason: Agitation Last Admin: 12/14/16 13:31 Dose: 2 mg Lorazepam (Ativan) 2 mg IM Q6 PRN PRN Reason: severe agitation Magnesium Hydroxide (Milk Of Magnesia) 30 ml PO HS PRN PRN Reason: Constipation Last Admin: 12/17/16 05:51 Dose: 30 ml Pantoprazole Sodium (Protonix Ec Tab) 40 mg PO DAILY [facility] Last Admin: 12/21/16 08:48 Dose: 40 mg Quetiapine Fumarate (Seroquel) 100 mg PO DAILY [facility] Last Admin: 12/21/16 08:49 Dose: 100 mg Quetiapine Fumarate (Seroquel) 200 mg PO HS [facility] Last Admin: 12/20/16 21:33 Dose: 200 mg Risperidone (Risperdal Tab) 4 mg PO Q12 [facility] Last Admin: 12/21/16 08:48 Dose: 4 mg Fluticasone/Salmeterol (Advair Diskus 250/50) 1 puff INH Q12 [facility] Last Admin: 12/21/16 08:47 Dose: 1 puff Valsartan (Diovan) 80 mg PO DAILY [facility] Last Admin: 12/21/16 08:46 Dose: 80 mg Vitamin B Complex/Vit C/Folic Acid (Nephro-Jason) 1 tab PO DAILY [facility] Last Admin: 12/21/16 08:46 Dose: 1 tab Physical Exam - Constitutional Appears: Non-toxic - Head Exam Head Exam: NORMAL INSPECTION - Eye Exam Eye Exam: Normal appearance - ENT Exam ENT Exam: Mucous Membranes Moist - Neck Exam Neck exam: Positive for: Full Rom - Respiratory Exam Respiratory Exam: NORMAL BREATHING PATTERN - Cardiovascular Exam Cardiovascular Exam: Tachycardia, REGULAR RHYTHM - GI/Abdominal Exam GI & Abdominal Exam: Normal Bowel Sounds - Rectal Exam Rectal Exam: Deferred - Extremities Exam Extremities exam: Positive for: pedal edema - Back Exam Back exam: NORMAL INSPECTION - Neurological Exam Neurological exam: Alert, Oriented x3 - Psychiatric Exam Psychiatric exam: Normal Affect - Skin Skin Exam: Normal Color Results - Vital Signs Recent Vital Signs: Last Vital Signs Temp 97.7 F 12/21/16 15:46 Pulse 102 H 12/21/16 15:46 Resp 20 12/21/16 15:46 BP 144/99 H 12/21/16 15:46 Pulse Ox 99 12/11/16 17:00 - Labs Result Diagrams: 12/21/16 06:40 12/21/16 06:40 Labs: Laboratory Results - last 24 hr 12/19/16 12/19/16 12/19/16 06:50 08:00 18:51 WBC RBC Hgb Hct MCV MCH MCHC RDW Plt Count MPV Neut % (Auto) Lymph % (Auto) Kaufman % (Auto) Eos % (Auto) Baso % (Auto) Neut # Lymph # Kaufman # Eos # Baso # Sodium Potassium Chloride Carbon Dioxide Anion Gap BUN Creatinine Est GFR ( Amer) Est GFR (Non-Af Amer) Random Glucose Calcium Free PSA <0.1 % Free PSA Unable to calculate Total PSA 0.1 Prostate Cancer Risk See note Calcium (PTH Intact) 9.9 U Random Total Protein 180 Ur Total Protein 24 Hr 972 H 12/21/16 06:40 WBC 10.7 D RBC 4.01 L Hgb 12.2 Hct 36.7 MCV 91.5 MCH 30.5 MCHC 33.4 RDW 14.0 Plt Count 223 MPV 7.9 Neut % (Auto) 72.8 Lymph % (Auto) 18.3 L Kaufman % (Auto) 8.3 Eos % (Auto) 0.3 Baso % (Auto) 0.3 Neut # 7.8 H Lymph # 2.0 Kaufman # 0.9 H Eos # 0.0 Baso # 0.0 Sodium 134 Potassium 4.2 Chloride 93 L Carbon Dioxide 28 Anion Gap 17 BUN 33 H Creatinine 1.2 Est GFR ( Amer) > 60 Est GFR (Non-Af Amer) > 60 Random Glucose 90 Calcium 9.7 Free PSA % Free PSA Total PSA Prostate Cancer Risk Calcium (PTH Intact) U Random Total Protein Ur Total Protein 24 Hr - EKG Data EKG Interpreted by: Myself EKG shows normal: Sinus rhythm Rate: Tachycardia Assessment & Plan - Assessment and Plan (Free Text) Assessment: sinus tachycardia. Normal left ventricular function. no sichemia on EKG. suggest betablocker. HTN will add low dose betablocker. - Date & Time Date: 12/21/16 Time: 18:00
[2016-12-21] MEDS: Divalproex 500 mg DR(BID formulation) PO SCH (21:55)
--- NOTE | 2016-12-21 23:41 | CP.PCM.PN ---
Subjective - Date & Time of Evaluation Date of Evaluation: 12/21/16 Time of Evaluation: 14:00 - Subjective Subjective: SEEN ON RENAL F/U FEELS IMPROVED WAS SEEN BY CARDIO FOR TACKYCARDIA RENAL FUNCTION REMAINS STABLE Objective - Vital Signs/Intake and Output Vital Signs (last 24 hours): Temp Pulse Resp BP Pulse Ox 97.7 F 102 H 20 144/99 H 99 12/21/16 15:46 12/21/16 15:46 12/21/16 15:46 12/21/16 15:46 12/11/16 17:00 - Medications Medications: Current Medications Acetaminophen (Tylenol 325mg Tab) 650 mg PO Q4 PRN PRN Reason: pain 3 thru 8 Last Admin: 12/20/16 03:02 Dose: 650 mg Al Hydrox/Mg Hydrox/Simethicone (Maalox Plus 30 Ml) 30 ml PO Q6 PRN PRN Reason: Indigestion / Heartburn Last Admin: 12/18/16 12:14 Dose: 30 ml Benztropine Mesylate (Cogentin) 1 mg PO Q12 [facility] Last Admin: 12/21/16 21:55 Dose: 1 mg Clonazepam (Klonopin) 1 mg PO BID PRN PRN Reason: Anxiety Diphenhydramine HCl (Benadryl) 50 mg PO Q6 PRN PRN Reason: eps Last Admin: 12/17/16 03:26 Dose: 50 mg Diphenhydramine HCl (Benadryl) 50 mg IM Q6 PRN PRN Reason: severe eps if can not swallow Divalproex Sodium (Depakote Dr(*Bid*)) 1,000 mg PO HS [facility] Last Admin: 12/21/16 21:55 Dose: 1,000 mg Ergocalciferol (Drisdol 50,000 Intl Units Cap) 1 cap PO Q7D [facility] Last Admin: 12/20/16 21:33 Dose: 1 cap Fluticasone Propionate (Flonase) 2 spr ARNOLDO DAILY [facility] Last Admin: 12/21/16 08:45 Dose: 2 spr Haloperidol (Haldol) 5 mg PO Q4 PRN PRN Reason: Agitation Last Admin: 12/17/16 03:26 Dose: 5 mg Haloperidol Lactate (Haldol) 5 mg IM Q4 PRN PRN Reason: severe agitation Hydrochlorothiazide (Microzide) 12.5 mg PO DAILY [facility] Last Admin: 12/21/16 08:46 Dose: 12.5 mg Lorazepam (Ativan) 2 mg PO Q4 PRN PRN Reason: Agitation Last Admin: 12/14/16 13:31 Dose: 2 mg Lorazepam (Ativan) 2 mg IM Q6 PRN PRN Reason: severe agitation Magnesium Hydroxide (Milk Of Magnesia) 30 ml PO HS PRN PRN Reason: Constipation Last Admin: 12/17/16 05:51 Dose: 30 ml Pantoprazole Sodium (Protonix Ec Tab) 40 mg PO DAILY [facility] Last Admin: 12/21/16 08:48 Dose: 40 mg Quetiapine Fumarate (Seroquel) 100 mg PO DAILY [facility] Last Admin: 12/21/16 08:49 Dose: 100 mg Quetiapine Fumarate (Seroquel) 200 mg PO HS [facility] Last Admin: 12/21/16 21:55 Dose: 200 mg Risperidone (Risperdal Tab) 4 mg PO Q12 [facility] Last Admin: 12/21/16 08:48 Dose: 4 mg Fluticasone/Salmeterol (Advair Diskus 250/50) 1 puff INH Q12 [facility] Last Admin: 12/21/16 21:27 Dose: 1 puff Valsartan (Diovan) 80 mg PO DAILY [facility] Last Admin: 12/21/16 08:46 Dose: 80 mg Vitamin B Complex/Vit C/Folic Acid (Nephro-Jason) 1 tab PO DAILY [facility] Last Admin: 12/21/16 08:46 Dose: 1 tab - Labs Labs: 12/21/16 06:40 12/21/16 06:40 PT 10.7 SECONDS (9.6-11.2) 12/10/16 11:12 INR 1.03 (0.92-1.08) 12/10/16 11:12 APTT 27.8 SECONDS (23.3-32.5) 12/10/16 11:12 Assessment and Plan - Assessment and Plan (Free Text) Assessment: MILD CKD .. STABLE CUAUHTEMOC SEVERE AND CHRONIC HYDRONEPHROSIS .. ENLARGED PROSTATE .. BPH P : F/U C/O CURRENT MEDS REASSURED
[2016-12-22] MEDS: Fluticasone-Salmeterol 250-50mcg Diskus INH SCH (09:19)
[2016-12-22] MEDS: Multivitamin Vitamin B Complex (Nephro-Vite) Tab PO SCH (09:21)
[2016-12-22] MEDS: Pantoprazole 40 mg EC Tab PO SCH (09:22)
--- NOTE | 2016-12-22 15:02 | PCM.PYCHPN ---
Psychiatric Progress Note - Psychiatric Progress Note Patient seen today, length of contact: Patient evaluated, chart reviewed, case discussed with team Patient Chief Complaint: "I'm okay" Problems Identified/Issues Discussed: No significant events overnight. Patient is improving clinically, is less loud and intrusive, more redirectable, is loose/disorganized at times, but less than when he was on admission. He denies AH/VH/SI/HI/paranoia. Medication Change: No Medical Record Reviewed: Yes Mental Status Examination - Cognitive Function Orientation: Person, Place, Situation, Time Memory: Intact Attention: WNL Concentration: WNL Association: Loose Fund of Knowledge: WNL Decription of patient's judgement and insights: Improving I/J - Mood Mood: Neutral - Affect Affect: Broad - Speech Speech: Loud - Formal Thought Process Formal Thought Process: Loosening of associations Psychotic Thoughts and Behaviors: Denies psychotic symptoms, but continues to be loose and disorganized at times - Suicidal Ideation Suicidal Ideation: No - Homicidal Ideation Homicidal Ideation: No Goal/Treatment Plan - Goal/Treatment Plan Need for Continued Stay: Remain at risks for inpatient hospitalization, Discharge may exacerbated symptoms Progress Toward Problem(s) and Goals/Treatment Plan: 51 yo male with Schizoaffective disorder presented acutely decompensated, now improving clinically. -Continue Seroquel 100 mg Daily/ 200 mg PO HS -Continue Risperdal 4 mg PO Q12 -Medicine consult, Renal consult, cardiac consult -Continue other medications -Individual, group and milieu tx Estimated Date of D/C: 12/23/16
[2016-12-22] MEDS: Fluticasone-Salmeterol 250-50mcg Diskus IH SCH (21:03)
[2016-12-22] MEDS: Divalproex 500 mg DR(BID formulation) PO SCH (21:04)
[2016-12-23] MEDS: Multivitamin Vitamin B Complex (Nephro-Vite) Tab PO SCH (08:18)
[2016-12-23] MEDS: Pantoprazole 40 mg EC Tab PO SCH (08:19)
[2016-12-23] MEDS: Fluticasone-Salmeterol 250-50mcg Diskus IH SCH ×2 (08:20→21:05)
--- NOTE | 2016-12-23 13:10 | CP.PCM.PN ---
Subjective - Date & Time of Evaluation Date of Evaluation: 12/23/16 Time of Evaluation: 10:00 - Subjective Subjective: Anxious , repetitive , euphoric Objective - Vital Signs/Intake and Output Vital Signs (last 24 hours): Temp Pulse Resp BP Pulse Ox 98.1 F 80 20 126/80 99 12/23/16 06:00 12/23/16 06:00 12/23/16 06:00 12/23/16 06:00 12/11/16 17:00 - Medications Medications: Current Medications Acetaminophen (Tylenol 325mg Tab) 650 mg PO Q4 PRN PRN Reason: pain 3 thru 8 Last Admin: 12/22/16 06:39 Dose: 650 mg Al Hydrox/Mg Hydrox/Simethicone (Maalox Plus 30 Ml) 30 ml PO Q6 PRN PRN Reason: Indigestion / Heartburn Last Admin: 12/18/16 12:14 Dose: 30 ml Benztropine Mesylate (Cogentin) 1 mg PO Q12 [facility] Last Admin: 12/23/16 08:18 Dose: 1 mg Clonazepam (Klonopin) 1 mg PO BID PRN PRN Reason: Anxiety Diphenhydramine HCl (Benadryl) 50 mg PO Q6 PRN PRN Reason: eps Last Admin: 12/17/16 03:26 Dose: 50 mg Diphenhydramine HCl (Benadryl) 50 mg IM Q6 PRN PRN Reason: severe eps if can not swallow Divalproex Sodium (Depakote Dr(*Bid*)) 1,000 mg PO HS [facility] Last Admin: 12/22/16 21:04 Dose: 1,000 mg Ergocalciferol (Drisdol 50,000 Intl Units Cap) 1 cap PO Q7D [facility] Last Admin: 12/20/16 21:33 Dose: 1 cap Fluticasone Propionate (Flonase) 2 spr ARNOLDO DAILY [facility] Last Admin: 12/23/16 08:21 Dose: 2 spr Haloperidol (Haldol) 5 mg PO Q4 PRN PRN Reason: Agitation Last Admin: 12/17/16 03:26 Dose: 5 mg Haloperidol Lactate (Haldol) 5 mg IM Q4 PRN PRN Reason: severe agitation Hydrochlorothiazide (Microzide) 12.5 mg PO DAILY [facility] Last Admin: 12/23/16 08:17 Dose: 12.5 mg Lorazepam (Ativan) 2 mg PO Q4 PRN PRN Reason: Anxiety/Agitation Lorazepam (Ativan) 2 mg IM Q4 PRN PRN Reason: Anxiety/Agitation,Unable PO Magnesium Hydroxide (Milk Of Magnesia) 30 ml PO HS PRN PRN Reason: Constipation Last Admin: 12/17/16 05:51 Dose: 30 ml Pantoprazole Sodium (Protonix Ec Tab) 40 mg PO DAILY [facility] Last Admin: 12/23/16 08:19 Dose: 40 mg Quetiapine Fumarate (Seroquel) 200 mg PO Q12 [facility] Last Admin: 12/23/16 08:22 Dose: 200 mg Risperidone (Risperdal Tab) 4 mg PO Q12 [facility] Last Admin: 12/23/16 08:19 Dose: 4 mg Fluticasone/Salmeterol (Advair Diskus 250/50) 1 puff IH Q12 [facility] Last Admin: 12/23/16 08:20 Dose: 1 puff Valsartan (Diovan) 80 mg PO DAILY [facility] Last Admin: 12/23/16 08:18 Dose: 80 mg Vitamin B Complex/Vit C/Folic Acid (Nephro-Jason) 1 tab PO DAILY [facility] Last Admin: 12/23/16 08:18 Dose: 1 tab - Labs Labs: 12/21/16 06:40 12/21/16 06:40 PT 10.7 SECONDS (9.6-11.2) 12/10/16 11:12 INR 1.03 (0.92-1.08) 12/10/16 11:12 APTT 27.8 SECONDS (23.3-32.5) 12/10/16 11:12 - Constitutional Appears: No Acute Distress - Head Exam Head Exam: NORMAL INSPECTION - Eye Exam Eye Exam: PERRL - ENT Exam ENT Exam: Mucous Membranes Moist - Neck Exam Neck Exam: Normal Inspection - Respiratory Exam Respiratory Exam: NORMAL BREATHING PATTERN - Cardiovascular Exam Cardiovascular Exam: REGULAR RHYTHM - GI/Abdominal Exam GI & Abdominal Exam: Soft, Normal Bowel Sounds - Extremities Exam Extremities Exam: Normal Inspection - Back Exam Back Exam: NORMAL INSPECTION - Neurological Exam Neurological Exam: Awake Additional comments: No focal motor sensory deficit. - Psychiatric Exam Psychiatric exam: Anxious Additional comments: euphoric - Skin Skin Exam: Warm Assessment and Plan - Assessment and Plan (Free Text) Assessment: COPD Bronchial Astma stable , Hyponatremia resolved , B/L hydronephrosis , previous U/S yrs ago showed PCK , previous TURP , Renal function stable , HTN stable , Tachycardia alternating with RSR , f/u by [facility] . Plan: Add low dosis of Coreg , monitor HR , SBP , also monitor for Bronchospasm , patient on Diovan , Continue current medications
--- NOTE | 2016-12-23 17:18 | PCM.PYCHPN ---
Psychiatric Progress Note - Psychiatric Progress Note Patient seen today, length of contact: Patient evaluated, chart reviewed, case discussed with team Patient Chief Complaint: "I'm okay" Problems Identified/Issues Discussed: Patient is improving clinically, is less loud and intrusive, more redirectable, is loose/disorganized at times, but less than when he was on admission. He denies AH/VH/SI/HI/paranoia. Diagnostic Results: Renal Consult: SEVERE CHRONIC CUAUHTEMOC HYDRONEPHROSIS DISTENDED BLADDER PER SONO HYPONATREMIA BETTER P : FOR BLADDER AND PROSTATE SONO C/O CURRENT MEDS Medication Change: No Medical Record Reviewed: Yes Mental Status Examination - Cognitive Function Orientation: Person, Place, Situation, Time Memory: Intact Attention: WNL Concentration: WNL Association: Loose Fund of Knowledge: WNL Decription of patient's judgement and insights: Improving I/J - Mood Mood: Neutral - Affect Affect: Broad - Speech Speech: Loud - Formal Thought Process Formal Thought Process: Loosening of associations Psychotic Thoughts and Behaviors: Denies AH/VH - Suicidal Ideation Suicidal Ideation: No - Homicidal Ideation Homicidal Ideation: No Goal/Treatment Plan - Goal/Treatment Plan Need for Continued Stay: Remain at risks for inpatient hospitalization, Discharge may exacerbated symptoms Progress Toward Problem(s) and Goals/Treatment Plan: 51 yo male with Schizoaffective disorder presented acutely decompensated, now improving clinically, but continues to be loose and disorganized at times. -Continue Seroquel 100 mg Daily/ 200 mg PO HS -Continue Risperdal 4 mg PO Q12 -Medicine consult, Renal consult, cardiac consult -Continue other medications -Individual, group and milieu tx Estimated Date of D/C: 12/27/16
[2016-12-23] MEDS: Divalproex 500 mg DR(BID formulation) PO SCH (21:04)
--- NOTE | 2016-12-23 22:41 | CP.PCM.PN ---
Subjective - Date & Time of Evaluation Date of Evaluation: 12/23/16 Time of Evaluation: 13:00 - Subjective Subjective: SEEN ON RENAL F/U FEELS MUCH IMPROVED DENIES ANY LOWER URINARY SYMPTOMS RENAL FUNCTION REMAINS STABLE INSPITE OF THE CUAUHTEMOC SEVERE CHRONIC HYDRO POST VOID BLADER VOLUME IS VERY LARGE .. NEEDS F/U AND INPUT Objective - Vital Signs/Intake and Output Vital Signs (last 24 hours): Temp Pulse Resp BP Pulse Ox 98.1 F 109 H 19 126/87 99 12/23/16 15:53 12/23/16 15:53 12/23/16 15:53 12/23/16 15:53 12/11/16 17:00 - Medications Medications: Current Medications Acetaminophen (Tylenol 325mg Tab) 650 mg PO Q4 PRN PRN Reason: pain 3 thru 8 Last Admin: 12/22/16 06:39 Dose: 650 mg Al Hydrox/Mg Hydrox/Simethicone (Maalox Plus 30 Ml) 30 ml PO Q6 PRN PRN Reason: Indigestion / Heartburn Last Admin: 12/18/16 12:14 Dose: 30 ml Benztropine Mesylate (Cogentin) 1 mg PO Q12 [facility] Last Admin: 12/23/16 21:05 Dose: 1 mg Clonazepam (Klonopin) 1 mg PO BID PRN PRN Reason: Anxiety Diphenhydramine HCl (Benadryl) 50 mg PO Q6 PRN PRN Reason: eps Last Admin: 12/17/16 03:26 Dose: 50 mg Diphenhydramine HCl (Benadryl) 50 mg IM Q6 PRN PRN Reason: severe eps if can not swallow Divalproex Sodium (Depakote Dr(*Bid*)) 1,000 mg PO HS [facility] Last Admin: 12/23/16 21:04 Dose: 1,000 mg Ergocalciferol (Drisdol 50,000 Intl Units Cap) 1 cap PO Q7D [facility] Last Admin: 12/20/16 21:33 Dose: 1 cap Fluticasone Propionate (Flonase) 2 spr ARNOLDO DAILY [facility] Last Admin: 12/23/16 08:21 Dose: 2 spr Haloperidol (Haldol) 5 mg PO Q4 PRN PRN Reason: Agitation Last Admin: 12/17/16 03:26 Dose: 5 mg Haloperidol Lactate (Haldol) 5 mg IM Q4 PRN PRN Reason: severe agitation Hydrochlorothiazide (Microzide) 12.5 mg PO DAILY [facility] Last Admin: 12/23/16 08:17 Dose: 12.5 mg Lorazepam (Ativan) 2 mg PO Q4 PRN PRN Reason: Anxiety/Agitation Lorazepam (Ativan) 2 mg IM Q4 PRN PRN Reason: Anxiety/Agitation,Unable PO Magnesium Hydroxide (Milk Of Magnesia) 30 ml PO HS PRN PRN Reason: Constipation Last Admin: 12/17/16 05:51 Dose: 30 ml Pantoprazole Sodium (Protonix Ec Tab) 40 mg PO DAILY [facility] Last Admin: 12/23/16 08:19 Dose: 40 mg Quetiapine Fumarate (Seroquel) 200 mg PO Q12 [facility] Last Admin: 12/23/16 21:05 Dose: 200 mg Risperidone (Risperdal Tab) 4 mg PO Q12 [facility] Last Admin: 12/23/16 21:05 Dose: 4 mg Fluticasone/Salmeterol (Advair Diskus 250/50) 1 puff IH Q12 [facility] Last Admin: 12/23/16 21:05 Dose: 1 puff Valsartan (Diovan) 80 mg PO DAILY [facility] Last Admin: 12/23/16 08:18 Dose: 80 mg Vitamin B Complex/Vit C/Folic Acid (Nephro-Jason) 1 tab PO DAILY [facility] Last Admin: 12/23/16 08:18 Dose: 1 tab - Labs Labs: 12/21/16 06:40 12/21/16 06:40 PT 10.7 SECONDS (9.6-11.2) 12/10/16 11:12 INR 1.03 (0.92-1.08) 12/10/16 11:12 APTT 27.8 SECONDS (23.3-32.5) 12/10/16 11:12 Assessment and Plan - Assessment and Plan (Free Text) Assessment: SEVERE CUAUHTEMOC AND CHRONIC HYDRONEPHROSIS MILD CKD .. 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
[2016-12-24] MEDS: Fluticasone-Salmeterol 250-50mcg Diskus IH SCH ×2 (08:51→21:09)
[2016-12-24] MEDS: Pantoprazole 40 mg EC Tab PO SCH (08:54)
[2016-12-24] MEDS: Multivitamin Vitamin B Complex (Nephro-Vite) Tab PO SCH (08:54)
--- NOTE | 2016-12-24 11:13 | PCM.PYCHPN ---
Psychiatric Progress Note - Psychiatric Progress Note Patient seen today, length of contact: with [place] speaking staff Patient Chief Complaint: i am doing better Problems Identified/Issues Discussed: pt less intrusive. he is still disorganized in terms of his thoughts. states he feels better with some medication changes. Medication Change: No Medical Record Reviewed: Yes Mental Status Examination - Cognitive Function Orientation: Person, Place, Situation, Time Memory: Intact Attention: WNL Concentration: WNL Association: Loose Fund of Knowledge: WNL Decription of patient's judgement and insights: poor - Mood Mood: Neutral - Affect Affect: Broad - Speech Speech: Appropriate - Formal Thought Process Formal Thought Process: Loosening of associations - Suicidal Ideation Suicidal Ideation: No - Homicidal Ideation Homicidal Ideation: No Goal/Treatment Plan - Goal/Treatment Plan Need for Continued Stay: Remain at risks for inpatient hospitalization, Discharge may exacerbated symptoms Progress Toward Problem(s) and Goals/Treatment Plan: schizoaffective disorder bipolar type continue current treatment Estimated Date of D/C: 12/27/16
[2016-12-24] MEDS: Divalproex 500 mg DR(BID formulation) PO SCH (21:05)
[2016-12-25] MEDS: Fluticasone-Salmeterol 250-50mcg Diskus IH SCH ×2 (08:26→21:20)
[2016-12-25] MEDS: Multivitamin Vitamin B Complex (Nephro-Vite) Tab PO SCH (08:34)
[2016-12-25] MEDS: Pantoprazole 40 mg EC Tab PO SCH (08:35)
--- NOTE | 2016-12-25 12:42 | PCM.PYCHPN ---
Psychiatric Progress Note - Psychiatric Progress Note Patient seen today, length of contact: with [place] speaking staff Patient Chief Complaint: no c/o Problems Identified/Issues Discussed: pt less intrusive. he is still disorganized in terms of his thoughts. states he feels better with some medication changes. Medication Change: No Medical Record Reviewed: Yes Mental Status Examination - Cognitive Function Orientation: Person, Place, Situation, Time Memory: Intact Attention: WNL Concentration: WNL Association: Loose Fund of Knowledge: WNL Decription of patient's judgement and insights: improved - Mood Mood: Neutral - Affect Affect: Broad - Speech Speech: Appropriate - Formal Thought Process Formal Thought Process: Loosening of associations - Suicidal Ideation Suicidal Ideation: No - Homicidal Ideation Homicidal Ideation: No Goal/Treatment Plan - Goal/Treatment Plan Need for Continued Stay: Remain at risks for inpatient hospitalization, Discharge may exacerbated symptoms Progress Toward Problem(s) and Goals/Treatment Plan: schizoaffective disorder bipolar type continue current treatment Estimated Date of D/C: 12/27/16
--- NOTE | 2016-12-25 13:40 | CP.PCM.PN ---
Subjective - Date & Time of Evaluation Date of Evaluation: 12/25/16 Time of Evaluation: 13:30 - Subjective Subjective: F/U COPD B/A, HTN Objective - Vital Signs/Intake and Output Vital Signs (last 24 hours): Temp Pulse Resp BP Pulse Ox 97.5 F L 93 H 20 116/76 99 12/25/16 05:54 12/25/16 08:32 12/25/16 05:54 12/25/16 08:32 12/11/16 17:00 - Medications Medications: Current Medications Acetaminophen (Tylenol 325mg Tab) 650 mg PO Q4 PRN PRN Reason: pain 3 thru 8 Last Admin: 12/22/16 06:39 Dose: 650 mg Al Hydrox/Mg Hydrox/Simethicone (Maalox Plus 30 Ml) 30 ml PO Q6 PRN PRN Reason: Indigestion / Heartburn Last Admin: 12/18/16 12:14 Dose: 30 ml Benztropine Mesylate (Cogentin) 1 mg PO Q12 [facility] Last Admin: 12/25/16 08:27 Dose: 1 mg Carvedilol (Coreg) 3.125 mg PO Q12 [facility] Last Admin: 12/25/16 08:32 Dose: 3.125 mg Clonazepam (Klonopin) 1 mg PO BID PRN PRN Reason: Anxiety Diphenhydramine HCl (Benadryl) 50 mg PO Q6 PRN PRN Reason: eps Last Admin: 12/17/16 03:26 Dose: 50 mg Diphenhydramine HCl (Benadryl) 50 mg IM Q6 PRN PRN Reason: severe eps if can not swallow Divalproex Sodium (Depakote Dr(*Bid*)) 1,000 mg PO HS [facility] Last Admin: 12/24/16 21:05 Dose: 1,000 mg Ergocalciferol (Drisdol 50,000 Intl Units Cap) 1 cap PO Q7D [facility] Last Admin: 12/20/16 21:33 Dose: 1 cap Fluticasone Propionate (Flonase) 2 spr ARNOLDO DAILY [facility] Last Admin: 12/25/16 08:28 Dose: 2 spr Haloperidol (Haldol) 5 mg PO Q4 PRN PRN Reason: Agitation Last Admin: 12/17/16 03:26 Dose: 5 mg Haloperidol Lactate (Haldol) 5 mg IM Q4 PRN PRN Reason: severe agitation Hydrochlorothiazide (Microzide) 12.5 mg PO DAILY [facility] Last Admin: 12/25/16 08:34 Dose: 12.5 mg Lorazepam (Ativan) 2 mg PO Q4 PRN PRN Reason: Anxiety/Agitation Lorazepam (Ativan) 2 mg IM Q4 PRN PRN Reason: Anxiety/Agitation,Unable PO Magnesium Hydroxide (Milk Of Magnesia) 30 ml PO HS PRN PRN Reason: Constipation Last Admin: 12/17/16 05:51 Dose: 30 ml Pantoprazole Sodium (Protonix Ec Tab) 40 mg PO DAILY [facility] Last Admin: 12/24/16 08:54 Dose: 40 mg Quetiapine Fumarate (Seroquel) 200 mg PO Q12 [facility] Last Admin: 12/25/16 08:34 Dose: 200 mg Risperidone (Risperdal Tab) 4 mg PO Q12 [facility] Last Admin: 12/25/16 08:34 Dose: 4 mg Fluticasone/Salmeterol (Advair Diskus 250/50) 1 puff IH Q12 [facility] Last Admin: 12/25/16 08:26 Dose: 1 puff Valsartan (Diovan) 80 mg PO DAILY [facility] Last Admin: 12/25/16 08:33 Dose: 80 mg Vitamin B Complex/Vit C/Folic Acid (Nephro-Jason) 1 tab PO DAILY [facility] Last Admin: 12/25/16 08:34 Dose: 1 tab - Labs Labs: 12/21/16 06:40 12/21/16 06:40 PT 10.7 SECONDS (9.6-11.2) 12/10/16 11:12 INR 1.03 (0.92-1.08) 12/10/16 11:12 APTT 27.8 SECONDS (23.3-32.5) 12/10/16 11:12 - Constitutional Appears: No Acute Distress - Head Exam Head Exam: NORMAL INSPECTION - Eye Exam Eye Exam: PERRL - ENT Exam ENT Exam: Normal Oropharynx - Neck Exam Neck Exam: Normal Inspection - Respiratory Exam Respiratory Exam: Decreased Breath Sounds (at bases) - Cardiovascular Exam Cardiovascular Exam: REGULAR RHYTHM - GI/Abdominal Exam GI & Abdominal Exam: Soft, Normal Bowel Sounds - Extremities Exam Extremities Exam: Normal Inspection - Back Exam Back Exam: NORMAL INSPECTION - Neurological Exam Neurological Exam: Awake Additional comments: No focal motor sensory deficit - Psychiatric Exam Psychiatric exam: Anxious - Skin Skin Exam: Warm Assessment and Plan (1) Asthma with COPD Status: Chronic (2) Hypertension Status: Chronic (3) Hydronephrosis Status: Acute (4) Hyponatremia Status: Resolved (5) Esophageal reflux Status: Chronic - Assessment and Plan (Free Text) Plan: Continue current Tx.
[2016-12-25] MEDS: Alum-Mag Hydrox-Simethicone Susp (30 mL) PO PRN (15:10)
[2016-12-25] MEDS: Divalproex 500 mg DR(BID formulation) PO SCH (21:20)
[2016-12-26 07:31] LABS: BLOOD UREA NITROGEN 32 mg/dl (9-20); CALCIUM 9.6 mg/dL (8.4-10.2); CARBON DIOXIDE 27 mmol/L (22-30); CHLORIDE 92 mmol/L (98-107); GFR AFRICAN-AMERICAN > 60; GLUCOSE,RANDOM 90 mg/dL (75-110); SODIUM 131 mmol/l (132-148)
[2016-12-26] MEDS: Fluticasone-Salmeterol 250-50mcg Diskus IH SCH ×2 (08:57→21:18)
--- NOTE | 2016-12-26 08:59 | PCM.PYCHPN ---
Psychiatric Progress Note - Psychiatric Progress Note Patient seen today, length of contact: Patient evaluated, case discussed with team, chart reviewed Patient Chief Complaint: "I'm okay" Problems Identified/Issues Discussed: No significant events over the weekend, patient continues to improve clinically. He is more organized, less loud and less intrusive. He denies AH/ VH/SI/HI/paranoia. Medication Change: No Medical Record Reviewed: Yes Mental Status Examination - Cognitive Function Orientation: Person, Place, Situation, Time Memory: Intact Attention: WNL Concentration: WNL Association: Loose Fund of Knowledge: WNL Decription of patient's judgement and insights: Improving I/J - Mood Mood: Neutral - Affect Affect: Broad - Speech Speech: Appropriate - Formal Thought Process Formal Thought Process: Loosening of associations Psychotic Thoughts and Behaviors: NO AH/VH - Suicidal Ideation Suicidal Ideation: No - Homicidal Ideation Homicidal Ideation: No Goal/Treatment Plan - Goal/Treatment Plan Need for Continued Stay: Remain at risks for inpatient hospitalization, Discharge may exacerbated symptoms Progress Toward Problem(s) and Goals/Treatment Plan: 51 yo male with Schizoaffective disorder presented acutely decompensated, now improving clinically. -Continue Seroquel 100 mg Daily/ 200 mg PO HS -Continue Risperdal 4 mg PO Q12 -Medicine consult, Renal consult, cardiac consult -Continue other medications -Individual, group and milieu tx Estimated Date of D/C: 12/29/16
[2016-12-26] MEDS: Multivitamin Vitamin B Complex (Nephro-Vite) Tab PO SCH (09:06)
[2016-12-26] MEDS: Pantoprazole 40 mg EC Tab PO SCH (09:06)
--- NOTE | 2016-12-26 19:11 | CP.PCM.PN ---
Subjective - Date & Time of Evaluation Date of Evaluation: 12/26/16 Time of Evaluation: 15:00 - Subjective Subjective: SEEN ON RENAL F/U RENAL FUNCTION STABLE FEELS IMPROVED DENIES LOWER URINARY SYMPTOMS Objective - Vital Signs/Intake and Output Vital Signs (last 24 hours): Temp Pulse Resp BP Pulse Ox 97.9 F 89 19 119/61 99 12/26/16 15:46 12/26/16 15:46 12/26/16 15:46 12/26/16 15:46 12/11/16 17:00 - Medications Medications: Current Medications Acetaminophen (Tylenol 325mg Tab) 650 mg PO Q4 PRN PRN Reason: pain 3 thru 8 Last Admin: 12/22/16 06:39 Dose: 650 mg Al Hydrox/Mg Hydrox/Simethicone (Maalox Plus 30 Ml) 30 ml PO Q6 PRN PRN Reason: Indigestion / Heartburn Last Admin: 12/25/16 15:10 Dose: 30 ml Benztropine Mesylate (Cogentin) 1 mg PO Q12 [facility] Last Admin: 12/26/16 09:04 Dose: 1 mg Carvedilol (Coreg) 3.125 mg PO Q12 [facility] Last Admin: 12/26/16 09:05 Dose: 3.125 mg Clonazepam (Klonopin) 1 mg PO BID PRN PRN Reason: Anxiety Diphenhydramine HCl (Benadryl) 50 mg PO Q6 PRN PRN Reason: eps Last Admin: 12/17/16 03:26 Dose: 50 mg Diphenhydramine HCl (Benadryl) 50 mg IM Q6 PRN PRN Reason: severe eps if can not swallow Divalproex Sodium (Depakote Dr(*Bid*)) 1,000 mg PO HS [facility] Last Admin: 12/25/16 21:20 Dose: 1,000 mg Ergocalciferol (Drisdol 50,000 Intl Units Cap) 1 cap PO Q7D [facility] Last Admin: 12/20/16 21:33 Dose: 1 cap Fluticasone Propionate (Flonase) 2 spr ARNOLDO DAILY [facility] Last Admin: 12/26/16 09:07 Dose: 2 spr Haloperidol (Haldol) 5 mg PO Q4 PRN PRN Reason: Agitation Last Admin: 12/17/16 03:26 Dose: 5 mg Haloperidol Lactate (Haldol) 5 mg IM Q4 PRN PRN Reason: severe agitation Hydrochlorothiazide (Microzide) 12.5 mg PO DAILY [facility] Last Admin: 12/26/16 09:04 Dose: 12.5 mg Lorazepam (Ativan) 2 mg PO Q4 PRN PRN Reason: Anxiety/Agitation Lorazepam (Ativan) 2 mg IM Q4 PRN PRN Reason: Anxiety/Agitation,Unable PO Magnesium Hydroxide (Milk Of Magnesia) 30 ml PO HS PRN PRN Reason: Constipation Last Admin: 12/17/16 05:51 Dose: 30 ml Pantoprazole Sodium (Protonix Ec Tab) 40 mg PO DAILY [facility] Last Admin: 12/26/16 09:06 Dose: 40 mg Quetiapine Fumarate (Seroquel) 200 mg PO Q12 [facility] Last Admin: 12/26/16 09:06 Dose: 200 mg Risperidone (Risperdal Tab) 4 mg PO Q12 [facility] Last Admin: 12/26/16 09:06 Dose: 4 mg Fluticasone/Salmeterol (Advair Diskus 250/50) 1 puff IH Q12 [facility] Last Admin: 12/26/16 08:57 Dose: 1 puff Valsartan (Diovan) 80 mg PO DAILY [facility] Last Admin: 12/26/16 09:04 Dose: 80 mg Vitamin B Complex/Vit C/Folic Acid (Nephro-Jason) 1 tab PO DAILY [facility] Last Admin: 12/26/16 09:06 Dose: 1 tab - Labs Labs: 12/21/16 06:40 12/26/16 07:03 PT 10.7 SECONDS (9.6-11.2) 12/10/16 11:12 INR 1.03 (0.92-1.08) 12/10/16 11:12 APTT 27.8 SECONDS (23.3-32.5) 12/10/16 11:12 Assessment and Plan - Assessment and Plan (Free Text) Assessment: SEVERE CHRONIC CUAUHTEMOC HYDRO BPH P : NEEDS INPUT C/O CURRENT CARE
[2016-12-26] MEDS: Divalproex 500 mg DR(BID formulation) PO SCH (21:18)
[2016-12-27 07:48] LABS: HEMATOCRIT 34.1 % (35.0-51.0); MEAN CORPUSCULAR HEMOGLOBIN 30.8 pg (27.0-31.0); MEAN CORPUSCULAR HGB CONC 34.6 g/dL (33.0-37.0); RED CELL DISTRIBUTION WIDTH 13.8 % (11.5-14.5)
[2016-12-27 08:04] LABS: BLOOD UREA NITROGEN 35 mg/dl (9-20); CALCIUM 9.2 mg/dL (8.4-10.2); CARBON DIOXIDE 28 mmol/L (22-30); CHLORIDE 94 mmol/L (98-107); GFR AFRICAN-AMERICAN > 60; GLUCOSE,RANDOM 108 mg/dL (75-110); SODIUM 132 mmol/l (132-148)
[2016-12-27] MEDS: Multivitamin Vitamin B Complex (Nephro-Vite) Tab PO SCH (08:24)
[2016-12-27] MEDS: Fluticasone-Salmeterol 250-50mcg Diskus IH SCH ×2 (08:24→21:26)
[2016-12-27] MEDS: Pantoprazole 40 mg EC Tab PO SCH (08:25)
[2016-12-27 08:57] LABS: MEAN CELL VOLUME 88.9 fl (80.0-94.0)
--- NOTE | 2016-12-27 09:30 | PCM.PYCHPN ---
Psychiatric Progress Note - Psychiatric Progress Note Patient seen today, length of contact: Patient evaluated, case discussed with team, chart reviewed, 35 min Patient Chief Complaint: "I'm okay" Problems Identified/Issues Discussed: No significant events overnight. Patient has improved clinically and is now at his baseline of functioning. He is calmer, less intrusive and more organized on conversation. He denies AH/VH/SI/HI/paranoia. Medication Change: No Medical Record Reviewed: Yes Mental Status Examination - Cognitive Function Orientation: Person, Place, Situation, Time Memory: Intact Attention: WNL Concentration: WNL Association: Loose Fund of Knowledge: WNL Decription of patient's judgement and insights: Fair I/J - Mood Mood: Neutral - Affect Affect: Broad - Speech Speech: Appropriate - Formal Thought Process Formal Thought Process: Loosening of associations Psychotic Thoughts and Behaviors: NO AH/VH/paranioa - Suicidal Ideation Suicidal Ideation: No - Homicidal Ideation Homicidal Ideation: No Goal/Treatment Plan - Goal/Treatment Plan Progress Toward Problem(s) and Goals/Treatment Plan: 51 yo male with Schizoaffective disorder presented acutely decompensated, now at his baseline psychiatrically. -Continue Seroquel 200 mg PO Q12 -Continue Risperdal 4 mg PO Q12 -Medicine consult, Renal consult, cardiac consult -Continue other medications -Individual, group and milieu tx -Discharge to home tomorrow Estimated Date of D/C: 12/28/16
--- NOTE | 2016-12-27 14:06 | CP.PCM.PN ---
Subjective - Date & Time of Evaluation Date of Evaluation: 12/27/16 Time of Evaluation: 11:45 - Subjective Subjective: F/U COPD B/A, HTN Pt appear calm, no A/D, no euphoric, n/c. Objective - Vital Signs/Intake and Output Vital Signs (last 24 hours): Temp Pulse Resp BP Pulse Ox 97.9 F 99 H 20 125/74 99 12/26/16 15:46 12/27/16 06:00 12/27/16 06:00 12/27/16 06:00 12/11/16 17:00 - Medications Medications: Current Medications Acetaminophen (Tylenol 325mg Tab) 650 mg PO Q4 PRN PRN Reason: pain 3 thru 8 Last Admin: 12/22/16 06:39 Dose: 650 mg Benztropine Mesylate (Cogentin) 1 mg PO Q12 [facility] Last Admin: 12/27/16 08:26 Dose: 1 mg Carvedilol (Coreg) 3.125 mg PO Q12 [facility] Last Admin: 12/27/16 08:24 Dose: 3.125 mg Clonazepam (Klonopin) 1 mg PO BID PRN PRN Reason: Anxiety Diphenhydramine HCl (Benadryl) 50 mg PO Q6 PRN PRN Reason: eps Last Admin: 12/17/16 03:26 Dose: 50 mg Divalproex Sodium (Depakote Dr(*Bid*)) 1,000 mg PO HS [facility] Last Admin: 12/26/16 21:18 Dose: 1,000 mg Ergocalciferol (Drisdol 50,000 Intl Units Cap) 1 cap PO Q7D [facility] Last Admin: 12/20/16 21:33 Dose: 1 cap Fluticasone Propionate (Flonase) 2 spr ARNOLDO DAILY [facility] Last Admin: 12/27/16 08:25 Dose: 2 spr Hydrochlorothiazide (Microzide) 12.5 mg PO DAILY [facility] Last Admin: 12/27/16 08:25 Dose: 12.5 mg Lorazepam (Ativan) 2 mg PO Q4 PRN PRN Reason: Anxiety/Agitation Pantoprazole Sodium (Protonix Ec Tab) 40 mg PO DAILY [facility] Last Admin: 12/27/16 08:25 Dose: 40 mg Quetiapine Fumarate (Seroquel) 200 mg PO Q12 [facility] Risperidone (Risperdal Tab) 4 mg PO Q12 [facility] Last Admin: 12/27/16 08:26 Dose: 4 mg Fluticasone/Salmeterol (Advair Diskus 250/50) 1 puff IH Q12 [facility] Last Admin: 12/27/16 08:24 Dose: 1 puff Valsartan (Diovan) 80 mg PO DAILY [facility] Last Admin: 12/27/16 08:26 Dose: 80 mg Vitamin B Complex/Vit C/Folic Acid (Nephro-Jason) 1 tab PO DAILY [facility] Last Admin: 12/27/16 08:24 Dose: 1 tab - Labs Labs: 12/27/16 07:29 12/27/16 07:29 PT 10.7 SECONDS (9.6-11.2) 12/10/16 11:12 INR 1.03 (0.92-1.08) 12/10/16 11:12 APTT 27.8 SECONDS (23.3-32.5) 12/10/16 11:12 - Constitutional Appears: No Acute Distress - Head Exam Head Exam: NORMAL INSPECTION - Eye Exam Eye Exam: PERRL - ENT Exam ENT Exam: Normal Oropharynx - Neck Exam Neck Exam: Normal Inspection - Respiratory Exam Respiratory Exam: Decreased Breath Sounds (at bases) - Cardiovascular Exam Cardiovascular Exam: REGULAR RHYTHM - GI/Abdominal Exam GI & Abdominal Exam: Soft, Normal Bowel Sounds - Extremities Exam Extremities Exam: Normal Inspection - Back Exam Back Exam: NORMAL INSPECTION - Neurological Exam Neurological Exam: Awake Additional comments: No focal motor sensory deficit. - Psychiatric Exam Psychiatric exam: Anxious - Skin Skin Exam: Warm Assessment and Plan (1) Asthma with COPD Status: Chronic (2) Hypertension Status: Chronic (3) Hydronephrosis Status: Acute (4) Esophageal reflux Status: Chronic (5) Hyponatremia Status: Resolved - Assessment and Plan (Free Text) Plan: Continue Advair, Diovan, Coreg and rest of Tx.
[2016-12-27] MEDS: Ergocalciferol 50,000 Intl Units Cap PO SCH (17:31)
--- NOTE | 2016-12-27 18:14 | CP.PCM.PN ---
Subjective - Date & Time of Evaluation Date of Evaluation: 12/27/16 Time of Evaluation: 15:00 - Subjective Subjective: SEEN ON RENAL F/U FEELS BETTER STATES URINATING WELL Objective - Vital Signs/Intake and Output Vital Signs (last 24 hours): Temp Pulse Resp BP Pulse Ox 97.9 F 69 18 122/69 99 12/27/16 16:15 12/27/16 16:15 12/27/16 16:15 12/27/16 16:15 12/11/16 17:00 - Medications Medications: Current Medications Acetaminophen (Tylenol 325mg Tab) 650 mg PO Q4 PRN PRN Reason: pain 3 thru 8 Last Admin: 12/22/16 06:39 Dose: 650 mg Benztropine Mesylate (Cogentin) 1 mg PO Q12 [facility] Last Admin: 12/27/16 08:26 Dose: 1 mg Carvedilol (Coreg) 3.125 mg PO Q12 [facility] Last Admin: 12/27/16 08:24 Dose: 3.125 mg Clonazepam (Klonopin) 1 mg PO BID PRN PRN Reason: Anxiety Diphenhydramine HCl (Benadryl) 50 mg PO Q6 PRN PRN Reason: eps Last Admin: 12/17/16 03:26 Dose: 50 mg Divalproex Sodium (Depakote Dr(*Bid*)) 1,000 mg PO HS [facility] Last Admin: 12/26/16 21:18 Dose: 1,000 mg Ergocalciferol (Drisdol 50,000 Intl Units Cap) 1 cap PO Q7D [facility] Last Admin: 12/27/16 17:31 Dose: 1 cap Fluticasone Propionate (Flonase) 2 spr ARNOLDO DAILY [facility] Last Admin: 12/27/16 08:25 Dose: 2 spr Hydrochlorothiazide (Microzide) 12.5 mg PO DAILY [facility] Last Admin: 12/27/16 08:25 Dose: 12.5 mg Lorazepam (Ativan) 2 mg PO Q4 PRN PRN Reason: Anxiety/Agitation Pantoprazole Sodium (Protonix Ec Tab) 40 mg PO DAILY [facility] Last Admin: 12/27/16 08:25 Dose: 40 mg Quetiapine Fumarate (Seroquel) 200 mg PO Q12 [facility] Risperidone (Risperdal Tab) 4 mg PO Q12 [facility] Last Admin: 12/27/16 08:26 Dose: 4 mg Fluticasone/Salmeterol (Advair Diskus 250/50) 1 puff IH Q12 [facility] Last Admin: 12/27/16 08:24 Dose: 1 puff Valsartan (Diovan) 80 mg PO DAILY [facility] Last Admin: 12/27/16 08:26 Dose: 80 mg Vitamin B Complex/Vit C/Folic Acid (Nephro-Jason) 1 tab PO DAILY [facility] Last Admin: 12/27/16 08:24 Dose: 1 tab - Labs Labs: 12/27/16 07:29 12/27/16 07:29 PT 10.7 SECONDS (9.6-11.2) 12/10/16 11:12 INR 1.03 (0.92-1.08) 12/10/16 11:12 APTT 27.8 SECONDS (23.3-32.5) 12/10/16 11:12 Assessment and Plan - Assessment and Plan (Free Text) Assessment: RENAL FUNCTION GOOD [place] HYDRONEPHROSIS .. CHRONIC BP GOOD C/O CURRENT CARE
[2016-12-27] MEDS: Divalproex 500 mg DR(BID formulation) PO SCH (21:30)
[2016-12-28 05:53] VITALS: RESP 20
[2016-12-28 07:21] LABS: BLOOD UREA NITROGEN 35 mg/dl (9-20); CALCIUM 9.4 mg/dL (8.4-10.2); CARBON DIOXIDE 28 mmol/L (22-30); CHLORIDE 96 mmol/L (98-107); GFR AFRICAN-AMERICAN > 60; GLUCOSE,RANDOM 85 mg/dL (75-110); POTASSIUM 4.4 MMOL/L (3.6-5.0); SODIUM 136 mmol/l (132-148)
[2016-12-28] MEDS: Fluticasone-Salmeterol 250-50mcg Diskus IH SCH (09:12)
[2016-12-28] MEDS: Pantoprazole 40 mg EC Tab PO SCH (09:19)
[2016-12-28] MEDS: Multivitamin Vitamin B Complex (Nephro-Vite) Tab PO SCH (09:19)
--- NOTE | 2016-12-28 09:58 | PCM.PYCHDC ---
Mental Status Examination - Mental Status Examination Orientation: Person, Place, Situation, Time Memory: Intact Mood: Neutral Affect: Broad Speech: Appropriate Association: Loose Fund of Knowledge: WNL Formal Thought Process: Loosening of associations Description of patient's judgement and insight: Fair I/J Psychotic Thoughts and Behaviors: NO AH/VH/paranioa Suicidal Ideation: No Current Homicidal Ideation?: No Discharge Summary - Discharge Note Reason for Hospitalization: As per initial admission note: Pt is with a long history of schizoaffective disorder including long-term hospitalizations. he is grossly decompensated and ambivalent about wanting/needing treatment. he is very paranoid, his mood is dysphoric and labile. he has poor sleep, somatic preoccupations and grossly disorganized thoughts. he is very anxious and feels the authorities are chasing him. already he is asking about his discharge. he states he see dr. dumont and that he has already graduated from a program at [facility] [place]. pt has been pacing, is loud and has episodes of tearfulness/yelling. he states he is medication adherent. Laboratory Data: 12/19/16- Bladder Ultrasound: Prevoid bladder volume 1305 ml. Postvoid urinary bladder volume 1158 ml. 12/17/16- Renal Ultrasound: Chronic severe bilaterrally symmetrical hydronephorsis. Large Capacitance bladder without focal or diffuse bladder wall abnormalities. Abnormal Lab Results 12/28/16 06:39 Sodium 136 Potassium 4.4 Chloride 96 L Carbon Dioxide 28 Anion Gap 16 BUN 35 H Creatinine 1.4 Est GFR ( Amer) > 60 Est GFR (Non-Af Amer) 53 Random Glucose 85 Calcium 9.4 Consultations:: List each consultation separately and include: 1. Reason for request. 2. Findings. 3. Follow-up Consultations: Medicine consult, Renal consult, Cardiology consult Summary of Hospital Course include:: 1. Description of specific treatment plan utilized for patients during their course of treatmen. 2. Summarize the time- course for resolution of acute symptoms and/or regressed behaviors. 3. Describe issues identified and worked on during hospitalization. 4. Describe medication utilized. 5. Describe medical problems identified and treated. 6. Reassessment of suicide risk Summary of Hospital Course: Patient admitted to the hospital, due to acute decompensation. He was stabilized on Depakote 1000 mg PO HS, Risperdal 4 mg PO Q12 hr, Seroquel 200 mg PO Q12 hr and Cogentin 1 mg PO Q12 hr. He is more organized and redirectable, without any current psychotic symptoms/depression/anxiety/kuldeep. Patient counseled on the importance of follow-up with psychiatric treatment. - Final Diagnosis (DSM 5) Condition upon Discharge: FAIR DSM 5: Schizoaffective Disorder Disposition: HOME/ ROUTINE Follow-up Treatment Plan: 51 yo male with Schizoaffective disorder presented acutely decompensated, now at his baseline psychiatrically. -Continue Seroquel 200 mg PO Q12 -Continue Risperdal 4 mg PO Q12 -Medicine consult, Renal consult, cardiac consult -Patient to follow-up with Dr. Awad as an outpatient, outpatient renal and follow-up recommended as well -Continue other medications -Discharge to home Prescriptions/Medication Reconciliation: Benztropine [Cogentin] 1 mg PO Q12 #60 tab Carvedilol [Coreg] 3.125 mg PO Q12 #60 tab Divalproex [Depakote DR(*BID*)] 1,000 mg PO HS #60 tcp Ergocalciferol [Drisdol 50,000 Intl Units Cap] 1 cap PO Q7D #4 cap Fluticasone Propionate [Flonase] 1 spr ARNOLDO BID #1 bottle Fluticasone/Salmeterol 250/50 [Advair Diskus 250/50] 1 puff IH Q12 #1 inhaler Omeprazole 40 mg PO DAILY #30 QUEtiapine [SEROquel] 200 mg PO Q12 #60 tab risperiDONE [RisperDAL Tab] 4 mg PO Q12 #120 tab Valsartan/Hydrochlorothiazide [Valsartan-Hctz 80-12.5 mg Tab] 1 tab PO DAILY # 30 Vitamin B Complex/Vit C/Folic [Nephro-Jason] 1 tab PO DAILY #30 tab - Smoking Cessation Smoking Cessation Medication prescribed: No Reason for not providing: Not indicated - Antipsychotic Medications Pt discharged on 2 or more routine antipsychotic medications: Yes - Justification for 2 or more meds Failed 3 or more trials of Monotherapy: List medications: Patient has a history of multiple psychiatric admissions and terminal superintendent psychiatric treatment. He continued to be manic and grossly disorganized with the maximum of one antipsychotic and was stabilized only when placed on the second antipsychotic. Patient not agreeable to Clozapine at this time.
--- NOTE | 2016-12-28 14:18 | RAD ---
PROCEDURE: CHEST RADIOGRAPH, 1 VIEW portable upright study 13:13. HISTORY: COPD COMPARISON: 02/19/2015. FINDINGS: LUNGS: Clear. PLEURA: No pneumothorax or pleural fluid seen. CARDIOVASCULAR: No radiographic findings to suggest acute or significant cardiovascular disease. OSSEOUS STRUCTURES: No significant abnormalities. Old healed posterior lateral right rib fractures. VISUALIZED UPPER ABDOMEN: Normal. OTHER FINDINGS: None. IMPRESSION: No active disease. No acute/significant interval changes.
--- NOTE | 2016-12-28 15:13 | CP.PCM.PN ---
Subjective - Date & Time of Evaluation Date of Evaluation: 12/28/16 Time of Evaluation: 11:30 - Subjective Subjective: F/U COPD B/A/HTN Pt with no A/D, no c/o. Objective - Vital Signs/Intake and Output Vital Signs (last 24 hours): Temp Pulse Resp BP Pulse Ox 95.5 F L 70 20 125/70 99 12/28/16 05:51 12/28/16 09:14 12/28/16 05:51 12/28/16 09:14 12/11/16 17:00 - Medications Medications: Current Medications Benztropine Mesylate (Cogentin) 1 mg PO Q12 [facility] Last Admin: 12/28/16 09:13 Dose: 1 mg Carvedilol (Coreg) 3.125 mg PO Q12 [facility] Last Admin: 12/28/16 09:14 Dose: 3.125 mg Divalproex Sodium (Depakote Dr(*Bid*)) 1,000 mg PO HS [facility] Last Admin: 12/27/16 21:30 Dose: 1,000 mg Ergocalciferol (Drisdol 50,000 Intl Units Cap) 1 cap PO Q7D [facility] Last Admin: 12/27/16 17:31 Dose: 1 cap Fluticasone Propionate (Flonase) 2 spr ARNOLDO DAILY [facility] Last Admin: 12/28/16 09:18 Dose: 2 spr Hydrochlorothiazide (Microzide) 12.5 mg PO DAILY [facility] Last Admin: 12/28/16 09:19 Dose: 12.5 mg Pantoprazole Sodium (Protonix Ec Tab) 40 mg PO DAILY [facility] Last Admin: 12/28/16 09:19 Dose: 40 mg Quetiapine Fumarate (Seroquel) 200 mg PO Q12 [facility] Last Admin: 12/28/16 09:21 Dose: 200 mg Risperidone (Risperdal Tab) 4 mg PO Q12 [facility] Last Admin: 12/28/16 09:20 Dose: 4 mg Fluticasone/Salmeterol (Advair Diskus 250/50) 1 puff IH Q12 [facility] Last Admin: 12/28/16 09:12 Dose: 1 puff Valsartan (Diovan) 80 mg PO DAILY [facility] Last Admin: 12/28/16 09:17 Dose: 80 mg Vitamin B Complex/Vit C/Folic Acid (Nephro-Jason) 1 tab PO DAILY [facility] Last Admin: 12/28/16 09:19 Dose: 1 tab - Labs Labs: 12/27/16 07:29 12/28/16 06:39 PT 10.7 SECONDS (9.6-11.2) 12/10/16 11:12 INR 1.03 (0.92-1.08) 12/10/16 11:12 APTT 27.8 SECONDS (23.3-32.5) 12/10/16 11:12 - Constitutional Appears: No Acute Distress - Head Exam Head Exam: NORMAL INSPECTION - Eye Exam Eye Exam: PERRL - ENT Exam ENT Exam: Normal Oropharynx - Neck Exam Neck Exam: Normal Inspection - Respiratory Exam Respiratory Exam: Decreased Breath Sounds (at bases), NORMAL BREATHING PATTERN - Cardiovascular Exam Cardiovascular Exam: REGULAR RHYTHM - GI/Abdominal Exam GI & Abdominal Exam: Soft, Normal Bowel Sounds - Extremities Exam Extremities Exam: Normal Inspection - Back Exam Back Exam: NORMAL INSPECTION - Neurological Exam Neurological Exam: Awake Additional comments: No focal motor sensory deficit. - Psychiatric Exam Psychiatric exam: Anxious - Skin Skin Exam: Warm Assessment and Plan (1) Asthma with COPD Status: Chronic (2) Hypertension Status: Chronic (3) Hydronephrosis Status: Acute (4) Esophageal reflux Status: Chronic (5) Hyponatremia Status: Resolved - Assessment and Plan (Free Text) Plan: Pt improved ans stable to be discharge,see instruction medication sheet, f/u in my office in a week.
[2016-12-28 15:39] VITALS: BP 125/86; PULSE 79; TEMP 98.2
== END 2016-12-28 19:08 | disposition home or self-care (01) | DRG 885 ==
LOC: H.ER 09:51 → H.ERHOLD 13:24 → H.PSYCH 15:00 → H.STEP 12-16 20:32
PROVIDERS: ADMIT Psychiatry & Neurology Psychiatry; ATTEND Psychiatry & Neurology Psychiatry
PROC: GZ51ZZZ Individual Psychotherapy, Behavioral (ICD-10-PCS; 2016-12-10)
PROC: GZHZZZZ Group Psychotherapy (ICD-10-PCS; principal; 2016-12-12)
DX: F25.0 Schizoaffective disorder, bipolar type (principal); E87.1 Hypo-osmolality and hyponatremia; I12.9 Hypertensive chronic kidney disease with stage 1 through stage 4 chronic kidney disease, or unspecified chronic kidney disease; N13.30 Unspecified hydronephrosis; N18.2 Chronic kidney disease, stage 2 (mild); J45.909 Unspecified asthma, uncomplicated; J44.9 Chronic obstructive pulmonary disease, unspecified; N40.0 Benign prostatic hyperplasia without lower urinary tract symptoms; K21.9 Gastro-esophageal reflux disease without esophagitis; E78.00 Pure hypercholesterolemia, unspecified; F79 Unspecified intellectual disabilities; R00.0 Tachycardia, unspecified